=== PATIENT | female | born 1965 | race Caucasian/White ===

== ENCOUNTER 2020-09-17 10:13 | Outpatient (REF) | payer OTHER, SELFPAY ==
[2020-09-17 11:50] LABS: Hematocrit 36.1 % (37-47); Hemoglobin 11.5 g/dl (12.0-16.0); Mean Corpuscular HGB Conc 31.9 g/dl (31.0-35.0); Mean Corpuscular Hemoglobin 29.3 pg (27.0-33.0); Mean Corpuscular Volume 91.9 fL (80-98); Mean Platelet Volume 10.3 fL (9.4-12.3); Platelet Count 325 X10*3/uL (160-400); Red Blood Count 3.93 X10*6/uL (4.20-5.50); Red Cell Distribution Width 14.3 % (11.0-16.0)
[2020-09-17 12:22] LABS: Alanine Aminotransferase 16 U/L (0-31); Albumin Level 4.2 g/dL (3.5-5.0); Alkaline Phosphatase 52 U/L (39-117); Anion Gap 14 (12-20); Aspartate Amino Transferase 19 U/L (5-31); Bilirubin Total 0.6 mg/dL (0.0-1.0); Blood Urea Nitrogen 8 mg/dL (9-16); Calcium 8.4 mg/dL (8.4-10.2); Carbon Dioxide 24 mmol/L (22-29); Chloride 102 mmol/L (96-108); Cholesterol 166 mg/dL; Estimated Glomerular Filt Rate > 60; Glucose Fasting 93 mg/dL (60-99); HDL Cholesterol 74 mg/dL; Iron 86 mcg/dL (30-160); LDL Cholesterol Calculated 81 mg/dl; Percent Iron Saturation 19 % (15-50); Potassium 3.9 mmol/l (3.3-5.1); Sodium 136 mmol/L (135-145); Total Iron Binding Capacity 447 mcg/dL (228-428); Triglycerides 55 mg/dL; Unsaturated Iron Binding 361 ug/dL
[2020-09-17 12:27] LABS: Ferritin 7 ng/mL (10-250); Thyroid Stimulating Hormone 1.24 uIU/mL (0.32-4.0); Vitamin D 25-OH Total 27.4 ng/mL (>30)
[2020-09-17 14:07] LABS: Glucose Urine UA NEG (NEG); Leukocyte Esterase Urine NEG (NEG); Nitrite Urine NEG (NEG); Specific Gravity - Urine <= 1.005 (1.005-1.025); Urine Blood TRACE (NEG); Urine Ketones NEG (NEG); Urine Protein NEG (NEG-TRACE)
[2020-09-17 14:19] LABS: Appearance Urine CLEAR; Color Urine YELLOW
[2020-09-17 14:47] LABS: RBC Urine 0-2 /HPF (0); WBC Urine 0-2 /HPF (0-4)
[2020-09-17 14:48] LABS: Bacteria Urine TRACE /LPF; Squamous Epithelial Cell Urine 1+ /LPF
== END 2020-09-17 10:14 | disposition home or self-care (01) ==
LOC: HO.HMGCLDS 10:13
PROVIDERS: PCP Internal Medicine; Visit Provider Internal Medicine
DX: D64.9 Anemia, unspecified (principal); E55.9 Vitamin D deficiency, unspecified; E78.5 Hyperlipidemia, unspecified
CPT/HCPCS: 36415; 80053; 80061; 81001; 82306; 82728; 83540; 84443; 85027

== ENCOUNTER 2021-07-23 17:59 | Emergency (ER) | payer OTHER, SELFPAY ==
--- NOTE | ~2021-07-23 | XR_ITS ---
EXAMINATION: XR CHEST CLINICAL INFORMATION: This is a 56-year-old female with chest pain. COMPARISON: None TECHNIQUE: Frontal portable view of the chest was obtained. FINDINGS: The cardiac size within normal limits. The pulmonary vascularity appears within normal limits. There is mild prominence to the right paraspinal stripe. I am uncertain whether this represents the superior vena cava or if there is increased soft tissue density. An upright PA and lateral chest x-ray would be helpful for further evaluation. The aortopulmonary window appears within normal limits. There is no evidence of pulmonary consolidation. The bony structures appear within normal limits. XR/XR chest 1V IMPRESSION: 1. There is mild prominence to the right paraspinal stripe. This could be mild dilatation of the superior vena cava. However, soft tissue thickening cannot be completely excluded. This would be better evaluated with an upright PA and lateral chest x-ray.
--- NOTE | 2021-07-23 18:00 | ECG_ITS ---
Test Reason : EKG CHANGES Blood Pressure : / mmHG Vent. Rate : 094 BPM Atrial Rate : 094 BPM P-R Int : 132 ms QRS Dur : 098 ms QT Int : 366 ms P-R-T Axes : 066 -11 042 degrees QTc Int : 457 ms Normal sinus rhythm RSR' or QR pattern in V1 suggests right ventricular conduction delay Borderline ECG No previous ECGs available Referred By: Saran Lora Electronically Signed By:MAXIMO MANCUSO MD
[2021-07-23 18:02] VITALS: BP 200/110; PULSE 88; O2SAT 100
[2021-07-23 18:04] VITALS: BP 144/89; PULSE 100; RESP 19; TEMP 36.7; O2SAT 100; BMI 31.6
--- NOTE | 2021-07-23 18:10 | ED.CHESTPAIN ---
HPI - Chest Pain General Chief Complaint: Chest Pain <MATA Whitten - Last Filed: 07/23/21 21:36> Stated Complaint: CHEST TIGHTNESS,ABN [place]KG,H[place] [facility] [place]MATA [place] - Last Filed: 07/23/21 21:36> Time Seen by Provider: 07/23/21 18:00 <MATA Whitten - Last Filed: 07/23/21 21:36> Source: patient <MATA Whitten - Last Filed: 07/23/21 21:36> Mode of arrival: ambulatory <MATA Whitten - Last Filed: 07/23/21 21:36> Limitations: no limitations <MATA Whitten - Last Filed: 07/23/21 21:36> History of Present Illness HPI narrative: This is a 56-year-old female past medical history significant for anxiety, iron deficiency anemia presenting to the emergency department complaining of chest tightness, left arm tingling, sore throat, fever and anxiety since last night. Patient tells me that she went to Urgent Care, where they did a COVID test, EKG and told her that she had an abnormal EKG, they also told her that her blood pressure was elevated. Patient got nervous, and called the ambulance, she states that she began experiencing chest tightness, left arm tingling shortly after she left urgent care. She states that the chest discomfort is localized to the center of her chest, constant and does not radiate. She also tells me that her throat has been hurting since last night, she states it stings, and she feels as though she needs to clear her throat often. She states that last night she took her temperature at home was 100? F. She tells me that one of her coworkers is sick with an upper respiratory infection. She is not vaccinated against COVID-19. She is not on blood thinners. She denies nausea, vomiting, abdominal pain, weakness, chills. No previous cardiac history <MATA Whitten Last Filed: 07/23/21 21:36> MD complaint: chest discomfort ( tightness ) <MATA Whitten Last Filed: 07/23/21 21:36> Onset (ago): day(s) (2) <MATA Whitten - Last Filed: 07/23/21 21:36> Timing of current episode: constant <MATA Whitten - Last Filed: 07/23/21 21:36> Prior episodes: Yes <MATA Whitten - Last Filed: 07/23/21 21:36> Onset: during rest <MATA Whitten - Last Filed: 07/23/21 21:36> Pain location: substernal <MATA Whitten - Last Filed: 07/23/21 21:36> Pain radiation: left arm <MATA Whitten - Last Filed: 07/23/21 21:36> Severity: mild <MATA Whitten - Last Filed: 07/23/21 21:36> Quality: tightness <MATA Whitten - Last Filed: 07/23/21 21:36> Relieving factors: nothing <MATA Whitten - Last Filed: 07/23/21 21:36> Exacerbating factors: nothing <MATA Whitten - Last Filed: 07/23/21 21:36> Context: other (New herbal remedies.) <MATA Whitten - Last Filed: 07/23/21 21:36> Associated symptoms: fever and other (sore throat ) <MATA Whitten - Last Filed: 07/23/21 21:36> Treatment prior to arrival: none <MATA Whitten - Last Filed: 07/23/21 21:36> Related Data Allergies/Adverse Reactions: Allergies Allergy/AdvReac Type Severity Reaction Status Date / Time No Known Allergies Allergy Verified 09/24/20 09:03 <MATA Whitten - Last Filed: 07/23/21 21:36> Review of Systems Review of Systems: Constitutional : No Weight loss, + Fever, No Chills, No Fatigue, No Malaise ENT/Mouth : + sore throat, No Rhinorrhea Eyes: No Eye Pain, No Swelling, No Redness Cardiovascular : + Chest Pain, No SOB, No Dyspnea on Exertion, No Orthopnea, No Edema, No Palpitations Respiratory : No Cough, No Sputum, No Wheezing Gastrointestinal : No Nausea, No Vomiting, No Diarrhea, No Constipation, No abdominal Pain, No Hematochezia, No Melena Genitourinary : No Dysuria, No Urinary Frequency, No Hematuria, Musculoskeletal : No joint pain, No Myalgias, No Joint Swelling Skin : No Skin Lesions, No rash Neuro : No Weakness, No Numbness, No Dizziness, No Headache Psych : + Anxiety/Panic, No Depression All other systems reviewed and are negative <MATA Whitten - Last Filed: 07/23/21 21:36> [facility] Past Medical History Attestation statement: The following information was validated with the patient. <MATA Whitten - Last Filed: 07/23/21 21:36> Source: old records reviewed and nursing notes reviewed <MATA Whitten - Last Filed: 07/23/21 21:36> Medical History: Medical History Annual physical exam Iron deficiency anemia Overweight <MATA Whitten - Last Filed: 07/23/21 21:36> Surgical History: Surgical History H/O colonoscopy History of right knee surgery <MATA Whitten - Last Filed: 07/23/21 21:36> Social History Social History: Social History Alcohol intake: current Alcohol intake frequency: a few times a month Patient Tobacco Use Status: Never used Tobacco Use of substances other than those prescribed or required for medical reasons: No Advance Directives: No Advance Directives Information Provided: Yes Patient : No <MATA Whitten - Last Filed: 07/23/21 21:36> Physical Exam Vital Signs: Vital Signs: Last Vital Signs Temp 98.1 F 07/23/21 18:04 Pulse 97 07/23/21 20:13 Resp 14 07/23/21 20:13 BP 148/74 H 07/23/21 20:13 Pulse Ox 99 07/23/21 20:13 Body Mass Index 31.6 Patient is noted to be slightly hypertensive 144/89. <MATA Whitten - Last Filed: 07/23/21 21:36> Vital Signs: Last Vital Signs Temp 98.1 F 07/23/21 18:04 Pulse 97 07/23/21 20:13 Resp 14 07/23/21 20:13 BP 148/74 H 07/23/21 20:13 Pulse Ox 99 07/23/21 20:13 Body Mass Index 31.6 <Varghese Garza MD - Last Filed: 07/23/21 22:11> Vital Signs: Last Vital Signs Temp 98.1 F 07/23/21 18:04 Pulse 97 07/23/21 20:13 Resp 14 07/23/21 20:13 BP 148/74 H 07/23/21 20:13 Pulse Ox 99 07/23/21 20:13 Body Mass Index 31.6 <MATA Lake - Last Filed: 07/24/21 11:42> Appearance: Alert.? Oriented X3.? No acute distress.? Patient appears very anxious, speaking rapidly. Head: Normocephalic, atraumatic, no step-offs or deformities Eyes: Pupils equal, round and reactive to light.? ENT: Pharynx normal.? No erythema or tonsillar exudates. No lymphadenopathy. Neck: Normal inspection.? Neck supple.? CVS: Rapid rate, regular rhythm.? Pulses normal.??Mitral regurg Respiratory: No respiratory distress.? Breath sounds normal.? Abdomen: Soft and nontender.? Skin: Skin warm and dry.? Normal skin color.? Normal skin turgor.? Extremities: No lower extremity edema.? No calf ttp. Negative homans sign b/l. 5/5 strength to bilateral upper and lower extremities Back: No midline tenderness, no C-spine tenderness, full range of motion, no CVA tenderness bilaterally Neuro: Oriented X 3.? No motor deficit.? No sensory deficit. <MATA Whitten - Last Filed: 07/23/21 21:36> Course Course Course Narrative: agree with assessment and plan - patient very anxious, required reassurance of Dr. Garza of unremarkable w/u prior to d/c. <MATA Lake - Last Filed: 07/24/21 11:42> Reevaluation(s) Reevaluation #1: Leukopenia, baseline anemia noted. No acute electrolyte abnormalities. Patient is COVID positive. X-ray of chest shows prominence of the right paraspinal stripe. <MATA Whitten - Last Filed: 07/23/21 21:36> Time: 19:45 <MATA Whitten - Last Filed: 07/23/21 21:36> Reevaluation #2: Patient now reports SOB and she remains tachycardic. Ddimer will be ordered at this time to r/o PE <MATA Whitten - Last Filed: 07/23/21 21:36> Time: 19:46 <MATA Whitten - Last Filed: 07/23/21 21:36> Reevaluation #3: Ddimer is negative. At this time I feel as though patient's chest pain is likely secondary to anxiety. Each time I speak to patient about results she becomes very anxious, and tells me that she is starting to have the chest pain again or suddenly becomes short of breath. Her trop was negative, D-dimer was negative. Unlikely ACS. Or PE. Although patient is COVID positive, she is saturating 100% on room air, no labored breathing is noted. Patient now tells me that her shortness of breath has resolved. VSS. She has been advised to return to the emergency department with any new or worsening symptoms. She has also been advised to quarantine for 10-14 days and to wear a mask around other to diminish likleyhood of transmission. I have also given her strict return precautions such as to return to the emergency department if she begins to experience shortness of breath that is worsening, chest pain, fevers, chills, nausea, vomiting, headache, weakness. She has been advised to follow-up with her PCP and psychiatry. After I went to talk to the patient about discharge, she tells me she does not feel comfortable getting discharged home because she still feeling the chest pain. I told her that this is unlikely acute coronary syndrome, or a pulmonary embolism. I told her her troponin was negative, and her EKG looked okay. I offered patient a 2nd troponin, for peace of mind. She states she would like this. To note, patient was worried about her EKG. However, it was looked at by who agrees that there is no acute ischemia. <MATA Whitten - Last Filed: 07/23/21 21:36> Time: 20:41 <MATA Whitten - Last Filed: 07/23/21 21:36> Additional Reevaluation(s): 2125 Went to speak to the Patient with Dr. Garza. We answered all her questions and informed her that both her Trops are negative. And her D-dimer was negative. She is safe for DC home and i have given her cardiologys info for follow up. <MATA Whitten - Last Filed: 07/23/21 21:36> MDM - Chest Pain MDM Narrative Medical decision making narrative: 1800 56-year-old female past medical history significant for anxiety, and iron deficiency anemia presents to the emergency department with chest tightness that is substernal, nonradiating, constant, left arm tingling, sore throat, fevers X2 days. Patient was seen at urgent care today where they told her that she had an abnormal EKG. They did a COVID test that still pending at this time. Patient is not vaccinated against COVID-19. Upon physical examination patient appears anxious, she is speaking rapidly, she is in no acute distress. Lungs are clear to auscultation. A rapid regular rhythm is noted, likely sinus tachycardia secondary to anxiety. Abdomen is soft nontender nondistended. 5/5 strength upper and lower extremities. Pupils equal round and reactive to light bilaterally. Pharynx normal with moist mucous membranes, no tonsillar erythema, or tonsillar exudates noted. No focal neuro deficits. No lower extremity edema. Plan at this time is to obtain basic labs, troponin, strep, COVID, chest x-ray, EKG. Patient will be given 0.5 mg of p.o. Ativan, for anxiety. <MATA Whitten - Last Filed: 07/23/21 21:36> 1800 56-year-old female past medical history significant for anxiety, and iron deficiency anemia presents to the emergency department with chest tightness that is substernal, nonradiating, constant, left arm tingling, sore throat, fevers X2 days. Patient was seen at urgent care today where they told her that she had an abnormal EKG. They did a COVID test that still pending at this time. Patient is not vaccinated against COVID-19. Upon physical examination patient appears anxious, she is speaking rapidly, she is in no acute distress. Lungs are clear to auscultation. A rapid regular rhythm is noted, likely sinus tachycardia secondary to anxiety. Abdomen is soft nontender nondistended. 5/5 strength upper and lower extremities. Pupils equal round and reactive to light bilaterally. Pharynx normal with moist mucous membranes, no tonsillar erythema, or tonsillar exudates noted. No focal neuro deficits. No lower extremity edema. Plan at this time is to obtain basic labs, troponin, strep, COVID, chest x-ray, EKG. Patient will be given 0.5 mg of p.o. Ativan, for anxiety. Attending: Patient seen and evaluated [id number] by me. Patient's EKG is unremarkable, troponin x2 negative. Patient does have COVID, pulse oximetry normal, chest x-ray unremarkable <Varghese Garza MD - Last Filed: 07/23/21 22:11> Medical Records Data Attestation: I reviewed the patient's medical records. <MATA Whitten - Last Filed: 07/23/21 21:36> Lab Data Attestation: I reviewed the patient's lab results. <MATA Whitten - Last Filed: 07/23/21 21:36> Result diagrams: : 07/23/21 18:33 07/23/21 18:33 <MATA Whitten - Last Filed: 07/23/21 21:36> Labs: Lab Results 07/23/21 07/23/21 07/23/21 Range/Units 18:28 18:29 18:33 WBC 4.1 L (4.8-10.8) X10*3/uL RBC 3.97 L (4.20-5.50) X10*6/uL Hgb 11.5 L (12.0-16.0) g/dl Hct 35.6 L (37.0-47.0) % MCV 89.7 (80.0-98.0) fL MCH 29.0 (27.0-33.0) pg MCHC 32.3 (31.0-35.0) g/dl RDW 14.1 (11.0-16.0) % Plt Count 322 (160-400) X10*3/uL MPV 9.6 (9.4-12.3) fL Immature Gran % (Auto) 0.2 (0.0-0.4) % Neut % (Auto) 69.9 (45-73) % Lymph % (Auto) 12.5 L (20-40) % [place] % (Auto) 15.2 H (2-11) % Eos % (Auto) 1.2 (0-4) % Baso % (Auto) 1.0 (0-2) % Lymph # (Auto) 0.5 L (1.2-4.9) X10*3/uL [place] # (Auto) 0.6 (0.1-1.2) X10*3/uL Eos # (Auto) 0.1 (0.0-0.4) X10*3/uL Baso # (Auto) 0.0 (0.0-0.2) X10*3/uL Abs Immat Gran (auto) 0.01 (0.00-0.03) X10*3/uL Absolute Neuts (auto) 2.9 (2.0-8.3) x10*3/uL Absolute Nucleated RBC 0.000 (0.0-0.012) X10*3/uL Nucleated RBC % (auto) 0.0 (0.0-0.2) /100WBC D-Dimer High Sensitivty NG/ML Sodium (135-145) mmol/L Potassium (3.3-5.1) mmol/L Chloride (96-108) mmol/L Carbon Dioxide (22-29) mmol/L Anion Gap (12-20) BUN (9-16) mg/dL Creatinine (0.5-1.4) mg/dL Estim Creat Clear Calc Estimated GFR Random Glucose (60-115) mg/dL Calcium (8.4-10.2) mg/dL Magnesium (1.6-2.6) mg/dL Total Bilirubin (0.0-1.0) mg/dL AST (5-31) U/L ALT (0-31) U/L Alkaline Phosphatase (39-117) U/L Troponin I High Sens (<3.5-17.0) ng/L Total Protein (6.5-8.0) g/dL Albumin (3.5-5.0) g/dL COVID-19 (JOE) Positive A (Negative) COVID-19 Clin Com See Note S. pyogenes GrpA HELADIO Negative (Negative) 07/23/21 07/23/21 07/23/21 Range/Units 18:33 18:33 20:13 WBC (4.8-10.8) X10*3/uL RBC (4.20-5.50) X10*6/uL Hgb (12.0-16.0) g/dl Hct (37.0-47.0) % MCV (80.0-98.0) fL MCH (27.0-33.0) pg MCHC (31.0-35.0) g/dl RDW (11.0-16.0) % Plt Count (160-400) X10*3/uL MPV (9.4-12.3) fL Immature Gran % (Auto) (0.0-0.4) % Neut % (Auto) (45-73) % Lymph % (Auto) (20-40) % [place] % (Auto) (2-11) % Eos % (Auto) (0-4) % Baso % (Auto) (0-2) % Lymph # (Auto) (1.2-4.9) X10*3/uL [place] # (Auto) (0.1-1.2) X10*3/uL Eos # (Auto) (0.0-0.4) X10*3/uL Baso # (Auto) (0.0-0.2) X10*3/uL Abs Immat Gran (auto) (0.00-0.03) X10*3/uL Absolute Neuts (auto) (2.0-8.3) x10*3/uL Absolute Nucleated RBC (0.0-0.012) X10*3/uL Nucleated RBC % (auto) (0.0-0.2) /100WBC D-Dimer High Sensitivty 188 NG/ML Sodium 137 (135-145) mmol/L Potassium 3.8 (3.3-5.1) mmol/L Chloride 103 (96-108) mmol/L Carbon Dioxide 25 (22-29) mmol/L Anion Gap 13 (12-20) BUN 9 (9-16) mg/dL Creatinine 0.68 (0.5-1.4) mg/dL Estim Creat Clear Calc 105.0 Estimated GFR > 60 Random Glucose 101 (60-115) mg/dL Calcium 9.1 D (8.4-10.2) mg/dL Magnesium 2.1 (1.6-2.6) mg/dL Total Bilirubin 0.3 (0.0-1.0) mg/dL AST 21 (5-31) U/L ALT 19 (0-31) U/L Alkaline Phosphatase 57 (39-117) U/L Troponin I High Sens < 3.5 (<3.5-17.0) ng/L Total Protein 7.0 (6.5-8.0) g/dL Albumin 4.2 (3.5-5.0) g/dL COVID-19 (JOE) (Negative) COVID-19 Clin Com S. pyogenes GrpA HELADIO (Negative) 07/23/21 Range/Units 20:54 WBC (4.8-10.8) X10*3/uL RBC (4.20-5.50) X10*6/uL Hgb (12.0-16.0) g/dl Hct (37.0-47.0) % MCV (80.0-98.0) fL MCH (27.0-33.0) pg MCHC (31.0-35.0) g/dl RDW (11.0-16.0) % Plt Count (160-400) X10*3/uL MPV (9.4-12.3) fL Immature Gran % (Auto) (0.0-0.4) % Neut % (Auto) (45-73) % Lymph % (Auto) (20-40) % [place] % (Auto) (2-11) % Eos % (Auto) (0-4) % Baso % (Auto) (0-2) % Lymph # (Auto) (1.2-4.9) X10*3/uL [place] # (Auto) (0.1-1.2) X10*3/uL Eos # (Auto) (0.0-0.4) X10*3/uL Baso # (Auto) (0.0-0.2) X10*3/uL Abs Immat Gran (auto) (0.00-0.03) X10*3/uL Absolute Neuts (auto) (2.0-8.3) x10*3/uL Absolute Nucleated RBC (0.0-0.012) X10*3/uL Nucleated RBC % (auto) (0.0-0.2) /100WBC D-Dimer High Sensitivty NG/ML Sodium (135-145) mmol/L Potassium (3.3-5.1) mmol/L Chloride (96-108) mmol/L Carbon Dioxide (22-29) mmol/L Anion Gap (12-20) BUN (9-16) mg/dL Creatinine (0.5-1.4) mg/dL Estim Creat Clear Calc Estimated GFR Random Glucose (60-115) mg/dL Calcium (8.4-10.2) mg/dL Magnesium (1.6-2.6) mg/dL Total Bilirubin (0.0-1.0) mg/dL AST (5-31) U/L ALT (0-31) U/L Alkaline Phosphatase (39-117) U/L Troponin I High Sens < 3.5 (<3.5-17.0) ng/L Total Protein (6.5-8.0) g/dL Albumin (3.5-5.0) g/dL COVID-19 (JOE) (Negative) COVID-19 Clin Com S. pyogenes GrpA HELADIO (Negative) <MATA Whitten - Last Filed: 07/23/21 21:36> Lab Results 07/23/21 07/23/21 07/23/21 Range/Units 18:28 18:29 18:33 WBC 4.1 L (4.8-10.8) X10*3/uL RBC 3.97 L (4.20-5.50) X10*6/uL Hgb 11.5 L (12.0-16.0) g/dl Hct 35.6 L (37.0-47.0) % MCV 89.7 (80.0-98.0) fL MCH 29.0 (27.0-33.0) pg MCHC 32.3 (31.0-35.0) g/dl RDW 14.1 (11.0-16.0) % Plt Count 322 (160-400) X10*3/uL MPV 9.6 (9.4-12.3) fL Immature Gran % (Auto) 0.2 (0.0-0.4) % Neut % (Auto) 69.9 (45-73) % Lymph % (Auto) 12.5 L (20-40) % [place] % (Auto) 15.2 H (2-11) % Eos % (Auto) 1.2 (0-4) % Baso % (Auto) 1.0 (0-2) % Lymph # (Auto) 0.5 L (1.2-4.9) X10*3/uL [place] # (Auto) 0.6 (0.1-1.2) X10*3/uL Eos # (Auto) 0.1 (0.0-0.4) X10*3/uL Baso # (Auto) 0.0 (0.0-0.2) X10*3/uL Abs Immat Gran (auto) 0.01 (0.00-0.03) X10*3/uL Absolute Neuts (auto) 2.9 (2.0-8.3) x10*3/uL Absolute Nucleated RBC 0.000 (0.0-0.012) X10*3/uL Nucleated RBC % (auto) 0.0 (0.0-0.2) /100WBC D-Dimer High Sensitivty NG/ML Sodium (135-145) mmol/L Potassium (3.3-5.1) mmol/L Chloride (96-108) mmol/L Carbon Dioxide (22-29) mmol/L Anion Gap (12-20) BUN (9-16) mg/dL Creatinine (0.5-1.4) mg/dL Estim Creat Clear Calc Estimated GFR Random Glucose (60-115) mg/dL Calcium (8.4-10.2) mg/dL Magnesium (1.6-2.6) mg/dL Total Bilirubin (0.0-1.0) mg/dL AST (5-31) U/L ALT (0-31) U/L Alkaline Phosphatase (39-117) U/L Troponin I High Sens (<3.5-17.0) ng/L Total Protein (6.5-8.0) g/dL Albumin (3.5-5.0) g/dL COVID-19 (JOE) Positive A (Negative) COVID-19 Clin Com See Note S. pyogenes GrpA HELADIO Negative (Negative) 07/23/21 07/23/21 07/23/21 Range/Units 18:33 18:33 20:13 WBC (4.8-10.8) X10*3/uL RBC (4.20-5.50) X10*6/uL Hgb (12.0-16.0) g/dl Hct (37.0-47.0) % MCV (80.0-98.0) fL MCH (27.0-33.0) pg MCHC (31.0-35.0) g/dl RDW (11.0-16.0) % Plt Count (160-400) X10*3/uL MPV (9.4-12.3) fL Immature Gran % (Auto) (0.0-0.4) % Neut % (Auto) (45-73) % Lymph % (Auto) (20-40) % [place] % (Auto) (2-11) % Eos % (Auto) (0-4) % Baso % (Auto) (0-2) % Lymph # (Auto) (1.2-4.9) X10*3/uL [place] # (Auto) (0.1-1.2) X10*3/uL Eos # (Auto) (0.0-0.4) X10*3/uL Baso # (Auto) (0.0-0.2) X10*3/uL Abs Immat Gran (auto) (0.00-0.03) X10*3/uL Absolute Neuts (auto) (2.0-8.3) x10*3/uL Absolute Nucleated RBC (0.0-0.012) X10*3/uL Nucleated RBC % (auto) (0.0-0.2) /100WBC D-Dimer High Sensitivty 188 NG/ML Sodium 137 (135-145) mmol/L Potassium 3.8 (3.3-5.1) mmol/L Chloride 103 (96-108) mmol/L Carbon Dioxide 25 (22-29) mmol/L Anion Gap 13 (12-20) BUN 9 (9-16) mg/dL Creatinine 0.68 (0.5-1.4) mg/dL Estim Creat Clear Calc 105.0 Estimated GFR > 60 Random Glucose 101 (60-115) mg/dL Calcium 9.1 D (8.4-10.2) mg/dL Magnesium 2.1 (1.6-2.6) mg/dL Total Bilirubin 0.3 (0.0-1.0) mg/dL AST 21 (5-31) U/L ALT 19 (0-31) U/L Alkaline Phosphatase 57 (39-117) U/L Troponin I High Sens < 3.5 (<3.5-17.0) ng/L Total Protein 7.0 (6.5-8.0) g/dL Albumin 4.2 (3.5-5.0) g/dL COVID-19 (JOE) (Negative) COVID-19 Clin Com S. pyogenes GrpA HELADIO (Negative) 07/23/21 Range/Units 20:54 WBC (4.8-10.8) X10*3/uL RBC (4.20-5.50) X10*6/uL Hgb (12.0-16.0) g/dl Hct (37.0-47.0) % MCV (80.0-98.0) fL MCH (27.0-33.0) pg MCHC (31.0-35.0) g/dl RDW (11.0-16.0) % Plt Count (160-400) X10*3/uL MPV (9.4-12.3) fL Immature Gran % (Auto) (0.0-0.4) % Neut % (Auto) (45-73) % Lymph % (Auto) (20-40) % [place] % (Auto) (2-11) % Eos % (Auto) (0-4) % Baso % (Auto) (0-2) % Lymph # (Auto) (1.2-4.9) X10*3/uL [place] # (Auto) (0.1-1.2) X10*3/uL Eos # (Auto) (0.0-0.4) X10*3/uL Baso # (Auto) (0.0-0.2) X10*3/uL Abs Immat Gran (auto) (0.00-0.03) X10*3/uL Absolute Neuts (auto) (2.0-8.3) x10*3/uL Absolute Nucleated RBC (0.0-0.012) X10*3/uL Nucleated RBC % (auto) (0.0-0.2) /100WBC D-Dimer High Sensitivty NG/ML Sodium (135-145) mmol/L Potassium (3.3-5.1) mmol/L Chloride (96-108) mmol/L Carbon Dioxide (22-29) mmol/L Anion Gap (12-20) BUN (9-16) mg/dL Creatinine (0.5-1.4) mg/dL Estim Creat Clear Calc Estimated GFR Random Glucose (60-115) mg/dL Calcium (8.4-10.2) mg/dL Magnesium (1.6-2.6) mg/dL Total Bilirubin (0.0-1.0) mg/dL AST (5-31) U/L ALT (0-31) U/L Alkaline Phosphatase (39-117) U/L Troponin I High Sens < 3.5 (<3.5-17.0) ng/L Total Protein (6.5-8.0) g/dL Albumin (3.5-5.0) g/dL COVID-19 (JOE) (Negative) COVID-19 Clin Com S. pyogenes GrpA HELADIO (Negative) <Varghese Garza MD - Last Filed: 07/23/21 22:11> Lab Results 07/23/21 07/23/21 07/23/21 Range/Units 18:28 18:29 18:33 WBC 4.1 L (4.8-10.8) X10*3/uL RBC 3.97 L (4.20-5.50) X10*6/uL Hgb 11.5 L (12.0-16.0) g/dl Hct 35.6 L (37.0-47.0) % MCV 89.7 (80.0-98.0) fL MCH 29.0 (27.0-33.0) pg MCHC 32.3 (31.0-35.0) g/dl RDW 14.1 (11.0-16.0) % Plt Count 322 (160-400) X10*3/uL MPV 9.6 (9.4-12.3) fL Immature Gran % (Auto) 0.2 (0.0-0.4) % Neut % (Auto) 69.9 (45-73) % Lymph % (Auto) 12.5 L (20-40) % [place] % (Auto) 15.2 H (2-11) % Eos % (Auto) 1.2 (0-4) % Baso % (Auto) 1.0 (0-2) % Lymph # (Auto) 0.5 L (1.2-4.9) X10*3/uL [place] # (Auto) 0.6 (0.1-1.2) X10*3/uL Eos # (Auto) 0.1 (0.0-0.4) X10*3/uL Baso # (Auto) 0.0 (0.0-0.2) X10*3/uL Abs Immat Gran (auto) 0.01 (0.00-0.03) X10*3/uL Absolute Neuts (auto) 2.9 (2.0-8.3) x10*3/uL Absolute Nucleated RBC 0.000 (0.0-0.012) X10*3/uL Nucleated RBC % (auto) 0.0 (0.0-0.2) /100WBC D-Dimer High Sensitivty NG/ML Sodium (135-145) mmol/L Potassium (3.3-5.1) mmol/L Chloride (96-108) mmol/L Carbon Dioxide (22-29) mmol/L Anion Gap (12-20) BUN (9-16) mg/dL Creatinine (0.5-1.4) mg/dL Estim Creat Clear Calc Estimated GFR Random Glucose (60-115) mg/dL Calcium (8.4-10.2) mg/dL Magnesium (1.6-2.6) mg/dL Total Bilirubin (0.0-1.0) mg/dL AST (5-31) U/L ALT (0-31) U/L Alkaline Phosphatase (39-117) U/L Troponin I High Sens (<3.5-17.0) ng/L Total Protein (6.5-8.0) g/dL Albumin (3.5-5.0) g/dL COVID-19 (JOE) Positive A (Negative) COVID-19 Clin Com See Note S. pyogenes GrpA HELADIO Negative (Negative) 07/23/21 07/23/21 07/23/21 Range/Units 18:33 18:33 20:13 WBC (4.8-10.8) X10*3/uL RBC (4.20-5.50) X10*6/uL Hgb (12.0-16.0) g/dl Hct (37.0-47.0) % MCV (80.0-98.0) fL MCH (27.0-33.0) pg MCHC (31.0-35.0) g/dl RDW (11.0-16.0) % Plt Count (160-400) X10*3/uL MPV (9.4-12.3) fL Immature Gran % (Auto) (0.0-0.4) % Neut % (Auto) (45-73) % Lymph % (Auto) (20-40) % [place] % (Auto) (2-11) % Eos % (Auto) (0-4) % Baso % (Auto) (0-2) % Lymph # (Auto) (1.2-4.9) X10*3/uL [place] # (Auto) (0.1-1.2) X10*3/uL Eos # (Auto) (0.0-0.4) X10*3/uL Baso # (Auto) (0.0-0.2) X10*3/uL Abs Immat Gran (auto) (0.00-0.03) X10*3/uL Absolute Neuts (auto) (2.0-8.3) x10*3/uL Absolute Nucleated RBC (0.0-0.012) X10*3/uL Nucleated RBC % (auto) (0.0-0.2) /100WBC D-Dimer High Sensitivty 188 NG/ML Sodium 137 (135-145) mmol/L Potassium 3.8 (3.3-5.1) mmol/L Chloride 103 (96-108) mmol/L Carbon Dioxide 25 (22-29) mmol/L Anion Gap 13 (12-20) BUN 9 (9-16) mg/dL Creatinine 0.68 (0.5-1.4) mg/dL Estim Creat Clear Calc 105.0 Estimated GFR > 60 Random Glucose 101 (60-115) mg/dL Calcium 9.1 D (8.4-10.2) mg/dL Magnesium 2.1 (1.6-2.6) mg/dL Total Bilirubin 0.3 (0.0-1.0) mg/dL AST 21 (5-31) U/L ALT 19 (0-31) U/L Alkaline Phosphatase 57 (39-117) U/L Troponin I High Sens < 3.5 (<3.5-17.0) ng/L Total Protein 7.0 (6.5-8.0) g/dL Albumin 4.2 (3.5-5.0) g/dL COVID-19 (JOE) (Negative) COVID-19 Clin Com S. pyogenes GrpA HELADIO (Negative) 07/23/21 Range/Units 20:54 WBC (4.8-10.8) X10*3/uL RBC (4.20-5.50) X10*6/uL Hgb (12.0-16.0) g/dl Hct (37.0-47.0) % MCV (80.0-98.0) fL MCH (27.0-33.0) pg MCHC (31.0-35.0) g/dl RDW (11.0-16.0) % Plt Count (160-400) X10*3/uL MPV (9.4-12.3) fL Immature Gran % (Auto) (0.0-0.4) % Neut % (Auto) (45-73) % Lymph % (Auto) (20-40) % [place] % (Auto) (2-11) % Eos % (Auto) (0-4) % Baso % (Auto) (0-2) % Lymph # (Auto) (1.2-4.9) X10*3/uL [place] # (Auto) (0.1-1.2) X10*3/uL Eos # (Auto) (0.0-0.4) X10*3/uL Baso # (Auto) (0.0-0.2) X10*3/uL Abs Immat Gran (auto) (0.00-0.03) X10*3/uL Absolute Neuts (auto) (2.0-8.3) x10*3/uL Absolute Nucleated RBC (0.0-0.012) X10*3/uL Nucleated RBC % (auto) (0.0-0.2) /100WBC D-Dimer High Sensitivty NG/ML Sodium (135-145) mmol/L Potassium (3.3-5.1) mmol/L Chloride (96-108) mmol/L Carbon Dioxide (22-29) mmol/L Anion Gap (12-20) BUN (9-16) mg/dL Creatinine (0.5-1.4) mg/dL Estim Creat Clear Calc Estimated GFR Random Glucose (60-115) mg/dL Calcium (8.4-10.2) mg/dL Magnesium (1.6-2.6) mg/dL Total Bilirubin (0.0-1.0) mg/dL AST (5-31) U/L ALT (0-31) U/L Alkaline Phosphatase (39-117) U/L Troponin I High Sens < 3.5 (<3.5-17.0) ng/L Total Protein (6.5-8.0) g/dL Albumin (3.5-5.0) g/dL COVID-19 (JOE) (Negative) COVID-19 Clin Com S. pyogenes GrpA HELADIO (Negative) <MATA Lake - Last Filed: 07/24/21 11:42> ECG Data ECG #1: Attestation: I personally reviewed and interpreted this ECG as follows: <MATA Whitten - Last Filed: 07/23/21 21:36> ECG interpretation date: 07/23/21 <MATA Whitten - Last Filed: 07/23/21 21:36> ECG interpretation time: 18:27 <MATA Whitten Last Filed: 07/23/21 21:36> Prior ECG tracings: not available for review <MATA Whitten - Last Filed: 07/23/21 21:36> Interpretation: Ventricular rate of 94, LA normal, QRS normal, QT/QTC normal. EKG shows normal sinus rhythm with incomplete right bundle branch block. No ST elevations or inversions. No acute ischemia. No previous EKGs for comparison. <MATA Whitten Last Filed: 07/23/21 21:36> Discharge Plan Discharge Clinical Impression: Anxiety, Chest pain not due to acute coronary syndrome, COVID-19 <MATA Whitten Last Filed: 07/23/21 21:36> Patient Disposition: Home, Self-Care <MATA Whitten Last Filed: 07/23/21 21:36> Instructions: Anxiety (ED), Chest Wall Pain (ED), COVID-19 (Coronavirus Disease 2019) (ED) <MATA Whitten - Last Filed: 07/23/21 21:36> Additional Instructions: Take your medications as prescribed. If you were prescribed antibiotics today, it is important that you take your medication to their entirety, do not skip any doses, do not finish them early. Today you tested positive for COVID-19. Take Ibuprofen or Tylenol as needed for fevers or body aches. Quarantine for 14 days if you are not vaccinated or for 10 days if you are vaccinated. Drink plenty of fluids. Follow-up with your primary care provider this week. Follow up with Psychiatry to discuss your anxiety. I gave you a Cardiologists number that you can follow up with outpatient if you have further concerns. Return to the emergency department with new or worsening symptoms. In case of an emergency call 911 <MATA Whitten Last Filed: 07/23/21 21:36> Referrals: Alexi Bill MD [Physician] - 1 week Physician,Unknown J [Primary Care Provider] - 2 days <MATA Whitten Last Filed: 07/23/21 21:36> Stand Alone Forms: Work/School Release <MATA Whitten - Last Filed: 07/23/21 21:36> Interventions: ED Discharge Assessment Last Done: 07/23/21 22:16 <MATA Whitten - Last Filed: 07/23/21 21:36> Discharge Date/Time: 07/23/21 22:18 <MATA Whitten - Last Filed: 07/23/21 21:36>
[2021-07-23 18:16] VITALS: PULSE 94
[2021-07-23] MEDS: LORazepam 0.5 MG TABLET PO (18:20)
[2021-07-23 18:53] LABS: MANUAL DIFF FLAG NO
[2021-07-23 18:54] LABS: Eosinophils Absolute Auto 0.1 X10*3/uL (0.0-0.4); Eosinophils Percent Auto 1.2 % (0-4); Hematocrit 35.6 % (37.0-47.0); Hemoglobin 11.5 g/dl (12.0-16.0); Imm Gran Abs Auto 0.01 X10*3/uL (0.00-0.03); Imm Gran Pct Auto 0.2 % (0.0-0.4); Lymphocytes Absolute Auto 0.5 X10*3/uL (1.2-4.9); Lymphocytes Percent Auto 12.5 % (20-40); Mean Corpuscular HGB Conc 32.3 g/dl (31.0-35.0); Mean Corpuscular Volume 89.7 fL (80.0-98.0); Mean Platelet Volume 9.6 fL (9.4-12.3); Monocytes Absolute Auto 0.6 X10*3/uL (0.1-1.2); Monocytes Percent Auto 15.2 % (2-11); Neutrophils Absolute Auto 2.9 x10*3/uL (2.0-8.3); Neutrophils Percent Auto 69.9 % (45-73); Platelet Count 322 X10*3/uL (160-400); Red Blood Count 3.97 X10*6/uL (4.20-5.50); Red Cell Distribution Width 14.1 % (11.0-16.0); White Blood Count 4.1 X10*3/uL (4.8-10.8)
[2021-07-23 19:03] LABS: COVID-19 Test Positive (Negative); IDNOW Serial# 9DD0AD1C
[2021-07-23 19:03] LABS: Strep A Nucleic Acid Negative (Negative)
[2021-07-23 19:14] LABS: Alanine Aminotransferase 19 U/L (0-31); Albumin Level 4.2 g/dL (3.5-5.0); Alkaline Phosphatase 57 U/L (39-117); Anion Gap 13 (12-20); Aspartate Amino Transferase 21 U/L (5-31); Bilirubin Total 0.3 mg/dL (0.0-1.0); Blood Urea Nitrogen 9 mg/dL (9-16); Calcium 9.1 mg/dL (8.4-10.2); Carbon Dioxide 25 mmol/L (22-29); Chloride 103 mmol/L (96-108); Estimated Glomerular Filt Rate > 60; Glucose Random 101 mg/dL (60-115); Magnesium 2.1 mg/dL (1.6-2.6); Potassium 3.8 mmol/L (3.3-5.1); Sodium 137 mmol/L (135-145)
[2021-07-23 19:20] LABS: Troponin-I High Sensitivity < 3.5 ng/L (<3.5-17.0)
--- NOTE | 2021-07-23 20:10 | PC.NURSE ---
PT transferred to room 3 due to COVID precaituons. PT is comfortable in bed with no complaints at this time. VSS. D-dimer lab drawn. PT provided with bed side commode.
[2021-07-23 20:13] VITALS: BP 148/74; PULSE 97; RESP 14; O2SAT 99
[2021-07-23 20:28] LABS: D Dimer High Sensitivity 188 NG/ML
[2021-07-23 21:22] LABS: Troponin-I High Sensitivity < 3.5 ng/L (<3.5-17.0)
== END 2021-07-23 22:18 | disposition home or self-care (01) ==
PROVIDERS: Physician Assistant; Emergency Provider Emergency Medicine
DX: U07.1 COVID-19 (principal); R07.9 Chest pain, unspecified; F41.9 Anxiety disorder, unspecified; D50.9 Iron deficiency anemia, unspecified
CPT/HCPCS: 36415; 71045; 80053; 83735; 84484; 85025; 85379; 87635; 87651; 93005; 99284; 99285

== ENCOUNTER 2021-07-25 11:46 | Outpatient (REF) | payer OTHER, SELFPAY | END 2021-07-25 11:47 | disposition home or self-care (01) | LOC: HO.LNP 11:46 | PROVIDERS: Visit Provider Physician Assistant Medical | DX: Z20.822 Contact with and (suspected) exposure to COVID-19 (principal) | CPT/HCPCS: U0003; U0005 ==

== ENCOUNTER → 2021-08-31 13:40 | Outpatient (BNVA) | payer OTHER, SELFPAY | PROVIDERS: PCP Internal Medicine; Referring Provider Internal Medicine; Visit Provider Internal Medicine Cardiovascular Disease ==

== ENCOUNTER 2021-09-12 08:58 | Outpatient (REF) | payer OTHER, SELFPAY ==
[2021-09-12 12:06] LABS: Hematocrit 38.4 % (37.0-47.0); Hemoglobin 12.1 g/dl (12.0-16.0); Mean Corpuscular HGB Conc 31.5 g/dl (31.0-35.0); Mean Corpuscular Volume 88.9 fL (80.0-98.0); Mean Platelet Volume 10.8 fL (9.4-12.3); Platelet Count 371 X10*3/uL (160-400); Red Blood Count 4.32 X10*6/uL (4.20-5.50); Red Cell Distribution Width 16.2 % (11.0-16.0); White Blood Count 4.8 X10*3/uL (4.8-10.8)
[2021-09-12 12:33] LABS: Alanine Aminotransferase 17 U/L (0-31); Albumin Level 4.2 g/dL (3.5-5.0); Alkaline Phosphatase 58 U/L (39-117); Anion Gap 9 (12-20); Aspartate Amino Transferase 16 U/L (5-31); Bilirubin Total 0.4 mg/dL (0.0-1.0); Blood Urea Nitrogen 14 mg/dL (9-16); Calcium 9.5 mg/dL (8.4-10.2); Carbon Dioxide 29 mmol/L (22-29); Chloride 107 mmol/L (96-108); Cholesterol 191 mg/dL; Estimated Glomerular Filt Rate > 60; Glucose Fasting 92 mg/dL (60-99); HDL Cholesterol 70 mg/dL; LDL Cholesterol Calculated 112 mg/dl; Potassium 4.2 mmol/L (3.3-5.1); Sodium 141 mmol/L (135-145); Total Protein 7.3 g/dL (6.5-8.0); Triglycerides 47 mg/dL
[2021-09-12 12:52] LABS: TSH reflex Free T4 1.72 uIU/mL (0.32-4.0); Vitamin D 25-OH Total 42.5 ng/mL (>30)
== END 2021-09-12 08:59 | disposition home or self-care (01) ==
LOC: HO.HMGCLDS 08:58
PROVIDERS: PCP Internal Medicine; Visit Provider Internal Medicine
DX: Z00.00 Encounter for general adult medical examination without abnormal findings (principal); E04.9 Nontoxic goiter, unspecified
CPT/HCPCS: 36415; 80053; 80061; 82306; 84443; 85027

== ENCOUNTER 2021-09-15 11:46 | Outpatient (REF) | payer OTHER, SELFPAY ==
[2021-09-15 14:22] LABS: Appearance Urine CLEAR; Color Urine YELLOW; Glucose Urine UA NEG (NEG); Leukocyte Esterase Urine NEG (NEG); Nitrite Urine NEG (NEG); Urine Blood NEG (NEG); Urine Ketones NEG (NEG); Urine Protein NEG (NEG-TRACE)
[2021-09-15 14:30] LABS: Bacteria Urine 1+ /LPF; RBC Urine 0-2 /HPF (0); Squamous Epithelial Cell Urine 2+ /LPF; WBC Urine 0-2 /HPF (0-4)
== END 2021-09-15 11:47 | disposition home or self-care (01) ==
LOC: HO.HMGCLDS 11:46
PROVIDERS: PCP Internal Medicine; Visit Provider Internal Medicine
DX: Z00.00 Encounter for general adult medical examination without abnormal findings (principal)
CPT/HCPCS: 81001

== ENCOUNTER 2021-09-22 13:58 | Outpatient (REF) | payer OTHER, SELFPAY ==
--- NOTE | ~2021-09-22 | US_ITS ---
EXAMINATION: US THYROID CLINICAL INFORMATION: Nontoxic goiter, unspecified. COMPARISON: None TECHNIQUE: Linear transducer grayscale and color Doppler examination with attention to the region of the thyroid. FINDINGS: SIZE: Measurements of the thyroid lobes and nodules are given in sagittal, anteroposterior and transverse dimensions respectively. Right Thyroid Lobe: 5.4 x 1.5 x 1.1 cm, volume 4.7 mL. Parenchyma: The gland echotexture is homogeneous. Thyroid vascularity is increased. Left Thyroid Lobe: 4.9 x 0.9 x 1.4 cm, volume 3.1 mL. Parenchyma: The gland echotexture is homogeneous. Thyroid vascularity is increased. Isthmus: 0.2 cm in maximum AP dimension. Estimated total number of nodules greater than or equal to 1 cm: 2 [employer] nodules are described as follows: 1. Location: Right lower pole. Size: 1.1 x 0.9 x 0.7 cm, volume 0.38 mL. Nodule characteristics: Composition: Solid/almost completely solid (2). Echogenicity: Very hypoechoic (3). Shape: Not taller than wide (0). Margins: Smooth (0). Echogenic Foci: None (0). ACR TI-RADS total points: 5 ACR TI-RADS category: 4 2. Location: Right mid pole. Size: 0.4 x 0.3 x 0.4 cm, volume 0.02 mL. Nodule characteristics: Composition: Spongiform (0). Echogenicity: None Shape: Not taller than wide Margins: Smooth (0). Echogenic Foci: None (0). ACR TI-RADS total points: 0 ACR TI-RADS category: 1 3. Location: Right upper pole. Size: 1.1 x 0.7 x 0.8 cm, volume 0.33 mL. Nodule characteristics: Composition: Solid (2). Echogenicity: Hypoechoic (2). Shape: Not taller than wide (0). Margins: Smooth (0). Echogenic Foci: Punctate echogenic foci (3). ACR TI-RADS total points: 7 ACR TI-RADS category: 5 4. Location: Left lower pole. Size: 0.3 x 0.5 x 0.8 cm, volume 0.16 mL. Nodule characteristics: Composition: Spongiform (0). Echogenicity: None Shape: Not taller than wide Margins: Smooth (0). Echogenic Foci: None ACR TI-RADS total points: 0 ACR TI-RADS category: 1 5. Location: Left mid pole. Size: 0.5 x 0.3 x 0.4 cm, volume 0.04 mL. Nodule characteristics: Composition: Spongiform (0). Echogenicity: None Shape: Not taller than wide Margins: Smooth (0). Echogenic Foci: None ACR TI-RADS total points: 0 ACR TI-RADS category: 1 NODES: No lymphadenopathy is seen in the tissue surrounding the thyroid gland. US/US thyroid IMPRESSION: 1. Slightly hypervascular normal-sized thyroid gland with bilateral thyroid nodules. 2. The right upper pole thyroid nodule has total points of 7 and is suspicious. A short-term 3-6 months follow-up automated biopsy now can be performed. ACR TI-RADS RECOMMENDATION REFERENCE: Ultrasound-guided fine-needle aspiration, followup ultrasound, no further follow up. * TR1 (0 point) and TR 2 (2 points): No FNA or follow up * TR3 (3 points): FNA if more than or equal to 2.5 cm in maximum dimension, followup ultrasound in 1, 3 and 5 years if 1.5 to 2.4 cm in maximum dimension. * TR4 (4-6 points): FNA if more than or equal to 1.5 cm in maximum dimension, followup ultrasound in 1, 2, 3 and 5 years if 1 to 1.4 cm in maximum dimension. * TR5 (more than or equal to 7 points): FNA if more than or equal to 1 cm in maximum dimension, followup ultrasound every year for 5 years if 0.5 to 0.9 cm in maximum dimension. * TR3, TR4 or TR5 nodules that are below the size threshold for follow up receive no follow up.
== END 2021-09-22 13:59 | disposition home or self-care (01) ==
LOC: HO.HMGCX 13:58
PROVIDERS: PCP Internal Medicine; Visit Provider Internal Medicine
DX: Z00.00 Encounter for general adult medical examination without abnormal findings (principal); E04.9 Nontoxic goiter, unspecified
CPT/HCPCS: 76536

== ENCOUNTER 2021-09-28 10:55 | Outpatient (REF) | payer OTHER, SELFPAY ==
--- NOTE | ~2021-09-28 | XR_ITS ---
EXAMINATION: XR CHEST CLINICAL INFORMATION: Prominent right Spinal stripe on previous chest x-ray 07/23/2021 COMPARISON: Chest x-ray 07/23/2021 TECHNIQUE: 2 views of the chest were obtained. FINDINGS: Lungs are well-expanded and clear. The heart size and pulmonary vascularity is normal. No paraspinal stripe seen. No gross bony abnormality. XR/XR chest 2V IMPRESSION: Unremarkable chest examination.
== END 2021-09-28 10:56 | disposition home or self-care (01) ==
LOC: HO.HMGCX 10:55
PROVIDERS: PCP Internal Medicine; Visit Provider Internal Medicine
DX: R93.89 Abnormal findings on diagnostic imaging of other specified body structures (principal)
CPT/HCPCS: 71046

== ENCOUNTER 2022-12-13 10:41 | Outpatient (REF) | payer OTHER, SELFPAY ==
[2022-12-13 11:27] LABS: MANUAL DIFF FLAG NO
[2022-12-13 11:41] LABS: Basophils Absolute Auto 0.1 X10*3/uL (0.0-0.2); Basophils Percent Auto 1.1 % (0-2); Eosinophils Absolute Auto 0.1 X10*3/uL (0.0-0.4); Eosinophils Percent Auto 1.1 % (0-4); Hematocrit 39.6 % (37.0-47.0); Hemoglobin 13.1 g/dl (12.0-16.0); Imm Gran Abs Auto 0.01 X10*3/uL (0.00-0.03); Imm Gran Pct Auto 0.2 % (0.0-0.4); Lymphocytes Absolute Auto 1.7 X10*3/uL (1.2-4.9); Lymphocytes Percent Auto 39.1 % (20-40); Mean Corpuscular HGB Conc 33.1 g/dl (31.0-35.0); Mean Corpuscular Hemoglobin 30.5 pg (27.0-33.0); Mean Corpuscular Volume 92.3 fL (80.0-98.0); Monocytes Absolute Auto 0.4 X10*3/uL (0.1-1.2); Monocytes Percent Auto 9.3 % (2-11); Neutrophils Absolute Auto 2.2 x10*3/uL (2.0-8.3); Neutrophils Percent Auto 49.2 % (45-73); Platelet Count 277 X10*3/uL (160-400); Red Blood Count 4.29 X10*6/uL (4.20-5.50); Red Cell Distribution Width 13.1 % (11.0-16.0); White Blood Count 4.4 X10*3/uL (4.8-10.8)
[2022-12-13 12:46] LABS: Alanine Aminotransferase 18 U/L (0-31); Albumin Level 4.2 g/dL (3.5-5.0); Alkaline Phosphatase 52 U/L (39-117); Anion Gap 13 (12-20); Aspartate Amino Transferase 20 U/L (5-31); Bilirubin Total 0.7 mg/dL (0.0-1.0); Blood Urea Nitrogen 11 mg/dL (9-16); Calcium 9.3 mg/dL (8.4-10.2); Carbon Dioxide 27 mmol/L (22-29); Chloride 103 mmol/L (96-108); Cholesterol 206 mg/dL; Estimated Glomerular Filt Rate > 60; Glucose Fasting 87 mg/dL (60-99); HDL Cholesterol 70 mg/dL; LDL Cholesterol Calculated 127 mg/dl; Potassium 4.1 mmol/L (3.3-5.1); Sodium 139 mmol/L (135-145); Total Protein 6.7 g/dL (6.5-8.0); Triglycerides 47 mg/dL
[2022-12-13 12:49] LABS: TSH reflex Free T4 1.27 uIU/mL (0.32-4.0); Vitamin D 25-OH Total 60.7 ng/mL (>30)
[2022-12-13 14:00] LABS: Appearance Urine Clear; Color Urine Yellow; Glucose Urine UA Negative (Negative); Leukocyte Esterase Urine Trace (Negative); Nitrite Urine Negative (Negative); Specific Gravity - Urine 1.015 (1.005-1.025); UMIC TRIGGER UACC YES; Urine Blood Trace (Negative); Urine Ketones Negative (Negative); Urine Protein Negative (Neg-Trace)
[2022-12-13 14:03] LABS: Bacteria Urine None Seen (None Seen); Hyaline Casts Urine 0-2 /LPF (0-2); RBC Urine 0-2 /HPF (0-2); WBC Urine 0-5 /HPF (0-5)
== END 2022-12-13 10:42 | disposition home or self-care (01) ==
LOC: HO.HMGCLDS 10:41
PROVIDERS: PCP Internal Medicine; Visit Provider Internal Medicine
DX: Z00.00 Encounter for general adult medical examination without abnormal findings (principal); E04.2 Nontoxic multinodular goiter
CPT/HCPCS: 36415; 80053; 80061; 81001; 81003; 82306; 84443; 85025

== ENCOUNTER 2022-12-20 10:10 | Outpatient (REF) | payer OTHER, SELFPAY ==
[2022-12-20 11:31] LABS: Appearance Urine Clear; Color Urine Yellow; Glucose Urine UA Negative (Negative); Leukocyte Esterase Urine Trace (Negative); Nitrite Urine Negative (Negative); Specific Gravity - Urine <= 1.005 (1.005-1.025); UMIC TRIGGER UA YES; UMIC TRIGGER UACC YES; Urine Blood Negative (Negative); Urine Ketones Negative (Negative); Urine Protein Negative (Neg-Trace)
[2022-12-20 11:40] LABS: Bacteria Urine None Seen (None Seen); Hyaline Casts Urine 0-2 /LPF (0-2); RBC Urine 0-2 /HPF (0-2); WBC Urine 0-5 /HPF (0-5)
== END 2022-12-20 10:11 | disposition home or self-care (01) ==
LOC: HO.HMGCLDS 10:10
PROVIDERS: PCP Internal Medicine; Visit Provider Internal Medicine
DX: Z00.00 Encounter for general adult medical examination without abnormal findings (principal); E04.2 Nontoxic multinodular goiter; R82.90 Unspecified abnormal findings in urine
CPT/HCPCS: 81001; 87086

== ENCOUNTER 2023-02-06 07:21 | Outpatient (REF) | payer OTHER, SELFPAY ==
[2023-02-06 11:22] LABS: Appearance Urine Clear; Color Urine Yellow; Glucose Urine UA Negative (Negative); Leukocyte Esterase Urine Negative (Negative); Nitrite Urine Negative (Negative); UMIC TRIGGER UACC YES; Urine Blood Trace (Negative); Urine Ketones Negative (Negative); Urine Protein Negative (Neg-Trace)
[2023-02-06 11:25] LABS: Bacteria Urine None Seen (None Seen); Hyaline Casts Urine 0-2 /LPF (0-2); RBC Urine 0-2 /HPF (0-2); Squamous Epithelial Cell Urine 0-2 /HPF (0-2); WBC Urine 0-5 /HPF (0-5)
== END 2023-02-06 07:22 | disposition home or self-care (01) ==
LOC: HO.HMGCLDS 07:21
PROVIDERS: PCP Internal Medicine; Visit Provider Internal Medicine
DX: R82.90 Unspecified abnormal findings in urine (principal)
CPT/HCPCS: 81001

== ENCOUNTER 2023-02-07 16:55 | Outpatient (REF) | payer OTHER, SELFPAY ==
[2023-02-07 18:15] LABS: Appearance Urine Clear; Color Urine Yellow; Glucose Urine UA Negative (Negative); Leukocyte Esterase Urine Negative (Negative); Nitrite Urine Negative (Negative); Specific Gravity - Urine <= 1.005 (1.005-1.025); Urine Blood Negative (Negative); Urine Ketones Negative (Negative); Urine Protein Negative (Neg-Trace)
== END 2023-02-07 16:56 | disposition home or self-care (01) ==
LOC: HO.LNP 16:55
PROVIDERS: Visit Provider Internal Medicine
DX: Z00.00 Encounter for general adult medical examination without abnormal findings (principal); E04.2 Nontoxic multinodular goiter
CPT/HCPCS: 81003

== ENCOUNTER 2023-03-08 09:26 | Outpatient (REF) | payer OTHER, SELFPAY ==
--- NOTE | ~2023-03-08 | XR_ITS ---
EXAMINATION: CERVICAL SPINE 3 VIEWS CLINICAL INFORMATION: Other symptoms and signs involving the musculoskeletal system. COMPARISON: None. TECHNIQUE: Frontal, lateral and odontoid views are obtained. FINDINGS: Vertebral body heights and alignment are normal. At C6-C7, there is moderately severe disc space narrowing. The remaining disc spaces are relatively well-maintained. No acute fracture or spondylolisthesis is seen. There is moderate anterior spondylosis at C5-C6 and C6-C7. The posterior elements are intact. There is no prevertebral soft tissue swelling. The dens and C7-T1 interface are normal. XR/XR lumbar spine 2-3V IMPRESSION: 1. There is moderate degenerative disc disease at C6-C7. 2. Moderate anterior spondylosis is seen at C5-C6 and C6-C7. EXAMINATION: XR LUMBOSACRAL SPINE CLINICAL INFORMATION: Other symptoms and signs involving the musculoskeletal system. COMPARISON: None TECHNIQUE: AP and lateral views of the lumbar spine and lateral view of the lumbosacral junction. FINDINGS: There is bony demineralization. There is a slight lumbar levoscoliosis. The lumbar disc spaces are well-maintained. No acute fracture or spondylolisthesis is seen. There is multi-level mild lumbar spondylosis. The posterior elements are intact. The paravertebral soft tissues are unremarkable. There are pelvic phleboliths. IMPRESSION: 1. The lumbar disc spaces are well-maintained. 2. There is multi-level mild lumbar spondylosis. 3. There is a slight lumbar levoscoliosis.
--- NOTE | ~2023-03-08 | XR_ITS ---
EXAMINATION: CERVICAL SPINE 3 VIEWS CLINICAL INFORMATION: Other symptoms and signs involving the musculoskeletal system. COMPARISON: None. TECHNIQUE: Frontal, lateral and odontoid views are obtained. FINDINGS: Vertebral body heights and alignment are normal. At C6-C7, there is moderately severe disc space narrowing. The remaining disc spaces are relatively well-maintained. No acute fracture or spondylolisthesis is seen. There is moderate anterior spondylosis at C5-C6 and C6-C7. The posterior elements are intact. There is no prevertebral soft tissue swelling. The dens and C7-T1 interface are normal. XR/XR cervical spine 2V IMPRESSION: 1. There is moderate degenerative disc disease at C6-C7. 2. Moderate anterior spondylosis is seen at C5-C6 and C6-C7. EXAMINATION: XR LUMBOSACRAL SPINE CLINICAL INFORMATION: Other symptoms and signs involving the musculoskeletal system. COMPARISON: None TECHNIQUE: AP and lateral views of the lumbar spine and lateral view of the lumbosacral junction. FINDINGS: There is bony demineralization. There is a slight lumbar levoscoliosis. The lumbar disc spaces are well-maintained. No acute fracture or spondylolisthesis is seen. There is multi-level mild lumbar spondylosis. The posterior elements are intact. The paravertebral soft tissues are unremarkable. There are pelvic phleboliths. IMPRESSION: 1. The lumbar disc spaces are well-maintained. 2. There is multi-level mild lumbar spondylosis. 3. There is a slight lumbar levoscoliosis.
[2023-03-12 21:03] LABS: Antibody to SS-A Antigen <1.0 NEG AI (<1.0 NEG); Antibody to SS-B Antigen <1.0 NEG AI (<1.0 NEG)
[2023-03-16 13:23] LABS: Anti Nuclear Antibody Screen NEGATIVE (NEGATIVE)
== END 2023-03-08 09:27 | disposition home or self-care (01) ==
LOC: HO.HMGCX 09:26
PROVIDERS: PCP Internal Medicine; Visit Provider Internal Medicine
DX: R68.2 Dry mouth, unspecified (principal); R29.898 Other symptoms and signs involving the musculoskeletal system; M50.323 Other cervical disc degeneration at C6-C7 level; M47.816 Spondylosis without myelopathy or radiculopathy, lumbar region
CPT/HCPCS: 36415; 72040; 72100; 86038; 86235

== ENCOUNTER 2023-03-16 10:51 | Outpatient (AMB) | payer OTHER, SELFPAY ==
[2023-03-16 11:08] VITALS: BP 108/66; PULSE 78; O2SAT 99; BMI 32.0
--- NOTE | 2023-03-16 11:08 | A.OFFPC_ITS ---
Vital Signs 03/16/23 11:08 Height 5 ft 6 in Weight 198 lb BMI 32.0 BP 108/66 Blood Pressure Location Rt brachial Position Sitting Pulse 78 Pulse Source Pulse Oximeter Pulse Oximetry (%) 99 Oxygen Delivery Method Room Air Intake Visit Reasons: ER follow up Intake Note: Pt is here today for ER follow up visit. Pt states that she has some questions she would like to discuss today. Allergies No Known Allergies Allergy (Verified 03/16/23 11:12) Medication List - Last Reconciled 03/16/23 by Kayla Rosario MD cholecalciferol (vitamin D3) 50 mcg PO DAILY [id number] serr PO omeprazole 20 mg PO DAILY Tobacco use date assessed: 03/16/23 Dental Screening Dental Screen Date: 03/16/23 Did you have a dental visit in the last 12 months?: Yes Did you have a dental problem in the last 6 months where you did not have access to dental care?: No Was dental information given to patient?: Patient has dentist HPI ER follow up HPI Details Pt presents for f/u of ER visit. Pt developed dyspnea on exertion with lower chest discomfort lasting a few minutes at a time 3 days ago. Evaluation ER including chest x-ray EKG basic labs were normal. Patient denies palpitations radiation of the discomfort but reports having episodes of heartburn on and off occasionally after laying down but also with regular activities. She denies nausea vomiting fever chills cough or wheezing. Patient complains of chronic postnasal drip and pressure in the left nostril on and off for few months. She denies allergy symptoms but reports intermittent sinus congestion. Patient is concerned about sleep apnea having episodes of difficulty breathing when trying to fall asleep laying on her back. She would like to see a sleep medicine specialis.t [facility] Medical History Annual physical exam Dupuytren's contracture of right hand Hx of screening mammography Iron deficiency anemia Multinodular goiter Neck pain Overweight RBBB Thyroid nodule Surgical History H/O colonoscopy History of right knee surgery Family History Father No problems noted. Mother A-fib Other Mental health disorder Substance use disorder Social History Housing: Apartment Alcohol intake: current Alcohol intake frequency: a few times a month Patient Tobacco Use Status: Never used Tobacco e-Cigarette/Vaping Use: Never Used Current occupational status: employed Cognitive needs: No Hearing needs: No Vision needs: Yes Questionnaire Thrive Questionnaire Date Thrive assessed: 12/18/22 ISABEL-7 AMB Questionnaire ISABEL-7 Date ISABEL - 7 assessed: 12/18/22 Source: Developed by Drs. Patricio Penaloza, Zulma Moya, Harris Cody and colleagues, with an educational mychal from [employer]. Review of Systems Const All systems reviewed & are unremarkable except as noted in HPI and below Reports no additional complaints Eyes Reports no additional complaints ENT Reports no additional complaints Card Reports no additional complaints Resp Reports no additional complaints GI Reports no additional complaints Reports no additional complaints Physical exam (Primary Care) Vital Signs: Last Vital Signs Pulse 78 03/16/23 11:08 BP 108/66 03/16/23 11:08 Pulse Ox 99 03/16/23 11:08 Oxygen Delivery Method Room Air 03/16/23 11:08 BMI result Body Mass Index 32.0 Tobacco/Smoking Status: Tobacco use Status Tobacco use date assessed 03/16/23 03/16/23 11:10 Patient Tobacco Use Status Never used Tobacco 03/16/23 11:10 e-Cigarette/Vaping Use Never Used 03/16/23 11:10 Thrive Assessment: Date of Thrive Assessment Date Thrive assessed 12/18/22 03/16/23 11:10 Const General: no acute distress HENMT Head: Yes normal to inspection General nose exam: Normal external nose present, Abnormal mucous membranes and turbinates present erythematous and Nasal discharge present Face and sinus: Yes normal facial exam and No sinus tenderness Throat: Yes postnasal drainage Eyes General: appearance normal, both eyes and all related structures Neck Neck: Yes supple Resp Effort & Inspection: normal respiratory effort Auscultation: clear to auscultation bilaterally Cardio Rhythm: regular rhythm Heart sounds: S1 normal heart sound present and S2 normal heart sound present GI Inspection: Yes normal to inspection Palpation (GI): Soft to palpation Percussion: Yes normal to percussion Auscultation: normal bowel sounds Assessment and Plan Assessment & Plan (1) Sleep apnea: Code(s): G47.30 - Sleep apnea, unspecified Plan: Referred to sleep medicine (2) Heartburn: Code(s): R12 - Heartburn Plan: anti GERD diet and lifestyle modification discussed with the patient. She will try omeprazole for 1 month if symptoms persist refer to GI (3) Dyspnea on exertion: Code(s): R06.09 - Other forms of dyspnea Plan: schedule stress test (4) Postnasal drip: Code(s): R09.82 - Postnasal drip Plan: try anitihistamine and Flonase for 1 month, refer to ENT Orders: Orders CA stress test Today I20.8 - Other forms of angina pectoris, R06.09 - Other forms of dyspnea, R12 - Heartburn NM cardiolite stress test Today I20.8 - Other forms of angina pectoris, R06.09 - Other forms of dyspnea Referrals Sleep Medicine Referral G47.30 - Sleep apnea, unspecified Ear/Nose/Throat Referral R09.81 - Nasal congestion, R09.82 - Postnasal drip Medications: New omeprazole 20 mg PO DAILY 30 caps 0RF Coding Level of Care Code Est Pt Level 4 (82255) Diagnoses Sleep apnea G47.30 Heartburn R12 Dyspnea on exertion R06.09 Postnasal drip R09.82
== END 2023-03-16 12:18 | disposition home or self-care (01) ==
PROVIDERS: PCP Internal Medicine; Visit Provider Internal Medicine
DX: G47.30 Sleep apnea, unspecified (principal); R12 Heartburn; R06.09 Other forms of dyspnea; R09.82 Postnasal drip
CPT/HCPCS: 99214

== ENCOUNTER → 2023-04-03 08:04 | Outpatient (REF) | payer OTHER, SELFPAY ==
--- NOTE | ~2023-04-03 | NM_ITS ---
Exercise Myocardial perfusion study Indication: Angina pectoris to evaluate for myocardial ischemia Technique: The patient was brought in for an exercise perfusion study on 04/03/2023. Patient performed exercise as per Ian protocol and was injected 30 mCi of sestamibi was given intravenously one target HR was achieved. Images were obtained using the SPECT gamma camera interlaced with the gating device. Images were obtained in supine position. Resting perfusion study was performed on 04/04/2023. Patient was administered 30 mCi of sestamibi intravenously at rest. Images were then obtained in supine position. Images obtained with and without CT attenuation. Total DLP 136 mGy-cm. Images were processed with the software and compared side to side in short axis, horizontal long axis and vertical long axis views. Findings: The stress perfusion study showed non attenuated images show minimal thinning of the apex of the LV myocardium. Remainder of the LV myocardium is normally perfused. Attenuation corrected images show mildly reduced uptake in the apex as well as the distal anterior and distal septum of the LV myocardium.. The gated study shows normal LV systolic function with calculated LVEF of 66%. LV cavity is normal in size. The gated study shows normal systolic wall thickening and contraction of all segments. There is no transient ischemic dilation. Resting study shows no change in perfusion pattern compared to stress perfusion study. Gating at rest reveals normal systolic wall motion with ejection fraction at 65%. The findings are consistent with no clear reversible defect suggestive of ischemia. Normal myocardial perfusion. NM/NM cardiolite stress test Impression: 1. Normal myocardial perfusion 2. Gated LVEF is 66% 3. Transient ischemic dilatation not present Stress EKG is negative for ischemia
--- NOTE | 2023-04-03 08:07 | CA_ITS ---
Acquisition Time: 2023-04-03 08:26:16 Total Exercise Time: 00:05:15 Test Indications: chest pressure, shortness of pre Medications: Protocol: LISA Max HR: 153 BPM 93% of Pred: 163 BPM Max BP: 138/078 mmHG Max Work Load: 7.0 METS Exercise stress test exercise 5 min 15 sec of Lisa protocol achieving 93% MPHR, with mild SOB, 3/10 chest tightness. with isolated PVC, with normotensive response to exercise, without EKG changes. Chest tightness and SOB resolved in recovery. Nuclear images pending. Test reviewed with Dr. Mccurdy. Referred By: Kayla Rosario Overread By: JUAN FRANCISCO MCCURDY
== END ==
LOC: HO.CARD 08:04
PROVIDERS: PCP Internal Medicine; Visit Provider Internal Medicine
DX: I20.8 Other forms of angina pectoris (principal); R06.09 Other forms of dyspnea; R12 Heartburn
CPT/HCPCS: 78452; 93017; A9500

== ENCOUNTER → 2023-04-03 08:21 | Outpatient (BNV) | payer OTHER, SELFPAY | PROVIDERS: PCP Internal Medicine; Visit Provider Internal Medicine Cardiovascular Disease | DX: R07.9 Chest pain, unspecified (principal); R06.02 Shortness of breath | CPT/HCPCS: 78452; 93016; 93018 ==

== ENCOUNTER 2023-04-09 14:33 | Outpatient (AMB) | payer OTHER, SELFPAY ==
--- NOTE | 2023-04-09 15:37 | MHC.OFFWIV ---
Intake Vital Signs 04/09/23 15:39 Height 5 ft 6 in BP 102/62 Blood Pressure Location Rt brachial Position Sitting Pulse 87 Pulse Source Pulse Oximeter Temp 97.3 F Temp Source Temporal Artery Scan Pulse Oximetry (%) 98 Oxygen Delivery Method Room Air Intake Visit Reasons: EP rash on left leg (lobby) Intake Note: Pt is here c/o rash on her left leg that started this morning. Patient Tobacco Use Status: Never used Tobacco Allergies No Known Allergies Allergy (Verified 04/09/23 16:18) Medication List - Last Reconciled 04/09/23 by Ignacio Mcdonald MD cholecalciferol (vitamin D3) 50 mcg PO DAILY [id number] serr PO Do you need a note to return to daycare/school/sports/work: No HPI EP rash on left leg (lobby) HPI Details 57-year-old female presents to the office for a sick visit. Patient is complaining of a rash on the left inner thigh. She was wearing tight jeans yesterday and got wet in the park. REPLACED BY [facility] Medical History Annual physical exam Dupuytren's contracture of right hand Hx of screening mammography Iron deficiency anemia Multinodular goiter Neck pain Overweight RBBB Thyroid nodule Surgical History H/O colonoscopy History of right knee surgery Family History Father No problems noted. Mother A-fib Other Mental health disorder Substance use disorder Social History Housing: Apartment Alcohol intake: current Alcohol intake frequency: a few times a month Patient Tobacco Use Status: Never used Tobacco e-Cigarette/Vaping Use: Never Used Current occupational status: employed Cognitive needs: No Hearing needs: No Vision needs: Yes Physical Exam Vital Signs: Last Vital Signs Temp 97.3 F 04/09/23 15:39 Pulse 87 04/09/23 15:39 BP 102/62 04/09/23 15:39 Pulse Ox 98 04/09/23 15:39 Oxygen Delivery Method Room Air 04/09/23 15:39 Skin Other: Left thigh: Small erythematous area 3 centimetres in size. Central hyperemia. No vesicles or pustules. Assessment & Plan Assessment & Plan (1) Rash: Code(s): R21 - Rash and other nonspecific skin eruption Plan: May be due to irritation or bug bite. Hydrocortisone cream called in. Coding Level of Care Code Est Pt Level 3 (96099) Diagnoses Rash R21
[2023-04-09 15:39] VITALS: BP 102/62; PULSE 87; TEMP 36.3; O2SAT 98
== END 2023-04-09 16:52 | disposition home or self-care (01) ==
PROVIDERS: PCP Internal Medicine; Visit Provider Internal Medicine
DX: R21 Rash and other nonspecific skin eruption (principal)
CPT/HCPCS: 99213

== ENCOUNTER 2023-05-02 08:03 | Outpatient (REF) | payer OTHER, SELFPAY ==
--- NOTE | ~2023-05-02 | MR_ITS ---
EXAMINATION: MR LUMBAR SPINE WITHOUT CONTRAST CLINICAL INFORMATION: Sciatica COMPARISON: None TECHNIQUE: MRI of the lumbar spine was obtained using routine sequences without contrast. FINDINGS: There is transitional lumbosacral anatomy. For the purposes of this dictation, the last well-formed disc space is designated L5-S1 and there is a rudimentary disc space at S1-S2. Normal anatomic alignment. No suspicious marrow signal or focal osseous lesion. No significant marrow edema. The vertebral body heights are maintained. Mild disc desiccation at L4-L5 and L5-S1. The conus medullaris terminates at the level of L1-L2. The distal spinal cord is normal in appearance. The cauda equina nerve roots appear normal. No significant abnormalities of the paraspinal musculature. Limited evaluation of the intra-abdominal structures without significant abnormalities. The abdominal aorta is of normal contour and caliber. SPINAL LEVELS: L1-L2: No significant spinal canal or neuroforaminal narrowing. L2-L3: No significant spinal canal or neuroforaminal narrowing. Facet arthropathy. L3-L4: Shallow disc bulge and moderate facet arthropathy. No significant central spinal canal stenosis. Mild bilateral neural foraminal narrowing L4-L5: Shallow disc bulge with small posterior annular fissure. Moderate facet arthropathy. Mild subarticular zone narrowing and mild bilateral neural foraminal narrowing L5-S1: No significant spinal canal or neural foraminal narrowing. Severe right and moderate left facet arthropathy. MR/MR lumbar spine wo con IMPRESSION: 1. Transitional lumbosacral anatomy with numbering convention as above. 2. Multilevel degenerative changes of the lumbar spine as described above, most notable for moderate to severe facet arthropathy at L4-L5 and L5-S1. No significant spinal canal stenosis or high-grade neural foraminal narrowing.
== END 2023-05-02 08:04 | disposition home or self-care (01) ==
LOC: HO.MRI 08:03
PROVIDERS: PCP Internal Medicine; Visit Provider Internal Medicine
DX: M54.30 Sciatica, unspecified side (principal); R29.898 Other symptoms and signs involving the musculoskeletal system
CPT/HCPCS: 72148

== ENCOUNTER 2023-05-30 07:48 | Outpatient (AMB) | payer OTHER, SELFPAY ==
--- NOTE | 2023-05-30 07:52 | A.OFFVIS_ITS ---
Intake Vital Signs 05/30/23 07:59 Height 5 ft 7 in Weight 198 lb BMI 31.0 BP 120/78 Blood Pressure Location Rt brachial Position Sitting Pulse 77 Pulse Source Pulse Oximeter Pulse Oximetry (%) 100 Oxygen Delivery Method Room Air Intake Visit Reasons: I-HOME PERFORMANCE CONSULTANT: Sleep Apnea - Confirmed Intake Note: NPV for sleep apnea Artist Color Separation Required: No Allergies No Known Allergies Allergy (Verified 05/30/23 07:53) HPI HPI Comments 2 History of Present Illness Details 57 y/o female patient presents with her for new in-person visit for sleep consultation. Pt reports difficulty falling asleep and staying sleep. She also reports acid reflux and feeling it irritates her lung. She has gasping arousals and can't sleep on her back. She is having very disrupted sleep, wakes up every 3 hrs. Pt was evaluated by ENT recently and diagnosed with deviated septum. She had lower back pain, bilateral arm weakness and legs numbness, but the symptoms has improved after physical therapy. She had vision issue, seeing little floaters, and had brain MRI done and evaluated by ophtalmologist. She will see neurologist to r/o MS. Sleep questionnaire: Have you ever been diagnosed with a sleep disorder? No. Have you ever had a sleep study in the past? No. Have you ever been treated for a sleep disorder? No. Do you take medications for a sleep disorder? tried melatonin once. Do you snore? A little. Do you wake up gasping at night? Yes. Do you have episodes of apneas? No. If yes, are they witnessed? No. Do you have episodes of nocturnal chest pain or dyspnea? Yes. Do you have difficulty initiating sleep? Yes. Do you have difficulty maintaining sleep? Yes. Do you wake up tired? Yes, sometimes. Do you have headaches upon awakening? Not usually. Do you wake up with dry mouth or throat? Yes, sometimes. Do you have GERD? Yes. Do you have nocturia? Yes. Do you have nocturnal leg cramps? Yes. Do you have symptoms of restless legs? No. Do you act out your dreams? No. Sleep hygiene questionnaire: What is your usual sleep routine? Usual bedtime is at 12 -1 am ; Usual wake up time is at 7-9 am. Do you take naps? No. Is your sleep environment cool, dark, and quiet? Yes. Do you exercise? no. Do you take caffeine or other stimulants? No. Do you use electronics in bed? Yes. What is your work schedule? n/a Hypersomnolence questionnaire: Do you have daytime tiredness or fatigue? A little. Do you easily fall asleep when inactive? No. Have you ever had episodes of sudden weakness? No. Have you ever had episodes of sudden weakness associated with strong emotions? No. PFSH Medical History Annual physical exam Dupuytren's contracture of right hand Hx of screening mammography Iron deficiency anemia Multinodular goiter Neck pain Overweight RBBB Thyroid nodule Surgical History H/O colonoscopy History of right knee surgery Family History (Updated 05/30/23 @ 07:59 by Viola Preciado CMA) Father Lung cancer Mother A-fib Other Mental health disorder Substance use disorder Social History (Updated 05/30/23 @ 07:59 by Viola Preciado CMA) Housing: Apartment Alcohol intake: current Alcohol intake frequency: a few times a month Patient Tobacco Use Status: Never used Tobacco e-Cigarette/Vaping Use: Never Used Current occupational status: employed Cognitive needs: No Hearing needs: No Vision needs: Yes Review of Systems Const All systems reviewed & are unremarkable except as noted in HPI and below ENT Reports Normal hearing present Neuro Reports Normal hearing present Physical Exam Vital Signs: Last Vital Signs Pulse 77 05/30/23 07:59 BP 120/78 05/30/23 07:59 Pulse Ox 100 05/30/23 07:59 Oxygen Delivery Method Room Air 05/30/23 07:59 BMI result Body Mass Index 31.0 Const General: cooperative and tired appearing Nutritional Appearance: obese Orientation/consciousness: patient oriented x3 Neck Neck: Yes full ROM and Yes supple Resp Effort & Inspection: normal respiratory effort and able to speak in complete sentences Neuro General: patient oriented x3, gait normal and moves all extremities Cranial nerves: Yes Bilaterally intact EOM present, Yes Normal facial strength present, Yes Midline tongue present, Yes Symmetric palate elevation present, Yes Normal hearing present, Yes Ability to bilaterally rotate head present and Yes Ability to bilaterally elevate shoulders present Cognition (Neuro): normal cognition Gait exam (Neuro): Normal gait present Psych Appearance: grossly normal Mental Status: mental status grossly normal Speech and movement: Normal speech and movement present Affect: normal affect Attitude: cooperative Assessment & Plan Assessment & Plan (1) Daytime sleepiness: Code(s): R40.0 - Somnolence (2) Sleep apnea: Code(s): G47.30 - Sleep apnea, unspecified Plan Pt is advised to undergo home sleep study to assess for sleep apnea. Will f/u with pt after study to discuss results and appropriate treatment options. Sleep hygiene education provided. Advised patient to try magnesium, calcium and vitamin D supplement. Advised patient to read Say Good Night to Insomnia and practice the 6 weeks sleep hygiene education. Pt to call with any worsening concerns or questions. Orders: Orders RT home sleep study Today G47.30 - Sleep apnea, unspecified, R06.09 - Other forms of dyspnea, R12 - Heartburn, R40.0 - Somnolence Coding Level of Care Code New Pt Level 4 (08425) Diagnoses Daytime sleepiness R40.0 Sleep apnea G47.30
[2023-05-30 07:59] VITALS: BP 120/78; PULSE 77; O2SAT 100; BMI 31.0
== END 2023-05-30 08:59 | disposition home or self-care (01) ==
PROVIDERS: PCP Internal Medicine; Visit Provider Nurse Practitioner Family
DX: R40.0 Somnolence (principal); G47.30 Sleep apnea, unspecified
CPT/HCPCS: 99204

== ENCOUNTER → 2023-05-30 07:48 | Outpatient (BNVA) | payer OTHER, SELFPAY | PROVIDERS: PCP Internal Medicine; Visit Provider Nurse Practitioner Family ==

== ENCOUNTER 2023-05-31 13:17 | Outpatient (AMB) | payer OTHER, SELFPAY ==
--- NOTE | 2023-05-31 13:20 | A.OFFPC_ITS ---
Vital Signs 05/31/23 13:21 Height 5 ft 7 in Weight 198 lb BMI 31.0 BP 100/64 Blood Pressure Location Rt brachial Position Sitting Pulse 84 Pulse Source Pulse Oximeter Pulse Oximetry (%) 98 Oxygen Delivery Method Room Air Intake Visit Reasons: Hospital follow up visit Intake Note: Pt is here today for Hospital follow up visit. Allergies aspirin Adverse Reaction (Intermediate, Verified 05/31/23 13:47) Stomach Upset Medication List - Last Reconciled 08/17/23 by Kayla Rosario MD cholecalciferol (vitamin D3) 50 mcg PO DAILY hydrocortisone 2.5% 1 appl topical BID PRN omeprazole 20 mg PO DAILY slippery elm bark 1,600 mg PO TID Tobacco use date assessed: 05/31/23 HPI Hospital follow up visit HPI Details Pt presents f/u hospitalization at [facility] for ? TIA , flashing lights and difficulty finding words. MRI showed small blood vessel changes but no CVA. [facility] Medical History Annual physical exam Dupuytren's contracture of right hand Hx of screening mammography Iron deficiency anemia Multinodular goiter Neck pain Overweight RBBB Thyroid nodule Surgical History H/O colonoscopy History of right knee surgery Family History (Updated 05/30/23 @ 07:59 by Viola Preciado CMA) Father Lung cancer Mother A-fib Other Mental health disorder Substance use disorder Social History (Updated 05/30/23 @ 07:59 by Viola Preciado CMA) Housing: Apartment Alcohol intake: current Alcohol intake frequency: a few times a month Patient Tobacco Use Status: Never used Tobacco e-Cigarette/Vaping Use: Never Used Current occupational status: employed Cognitive needs: No Hearing needs: No Vision needs: Yes Questionnaire Thrive Questionnaire Date Thrive assessed: 12/18/22 ISABEL-7 AMB Questionnaire ISABEL-7 Date ISAEBL - 7 assessed: 12/18/22 Source: Developed by Drs. Patricio Penaloza, Zulma Moya, Harris Cody and colleagues, with an educational mychal from [email or web address]. Review of Systems Const All systems reviewed & are unremarkable except as noted in HPI and below Reports no additional complaints Eyes Reports no additional complaints ENT Reports no additional complaints Card Reports no additional complaints Resp Reports no additional complaints GI Reports no additional complaints Reports no additional complaints Musc Reports no additional complaints Physical exam (Primary Care) Vital Signs: Last Vital Signs Pulse 84 05/31/23 13:21 BP 100/64 05/31/23 13:21 Pulse Ox 98 05/31/23 13:21 Oxygen Delivery Method Room Air 05/31/23 13:21 BMI result Body Mass Index 31.0 Tobacco/Smoking Status: Tobacco use Status Tobacco use date assessed 05/31/23 05/31/23 13:29 Patient Tobacco Use Status Never used Tobacco 05/31/23 13:24 e-Cigarette/Vaping Use Never Used 05/31/23 13:24 Thrive Assessment: Date of Thrive Assessment Date Thrive assessed 12/18/22 05/31/23 13:24 Const General: no acute distress HENMT General nose exam: Normal external nose present Mouth: Normal oral and palatal mucosa present Eyes General: appearance normal, both eyes and all related structures Neck Neck: Yes supple Resp Effort & Inspection: normal respiratory effort Auscultation: clear to auscultation bilaterally Cardio Rhythm: regular rhythm Heart sounds: S1 normal heart sound present and S2 normal heart sound present GI Inspection: Yes normal to inspection Palpation (GI): Soft to palpation Neuro Cranial nerves: Yes CN's II-XII intact bilaterally Cognition (Neuro): normal cognition Gait exam (Neuro): Normal gait present Motor exam (neuro): 5/5 motor strength present throughout Romberg Test: Negative Assessment and Plan Assessment & Plan (1) Muscle weakness of all 4 extremities: Code(s): M62.81 - Muscle weakness (generalized) Plan: referral to neurology Coding Level of Care Code Est Pt Level 3 (19798) Diagnoses Muscle weakness of all 4 extremities M62.81
[2023-05-31 13:21] VITALS: BP 100/64; PULSE 84; O2SAT 98; BMI 31.0
== END 2023-05-31 14:53 | disposition home or self-care (01) ==
PROVIDERS: PCP Internal Medicine; Visit Provider Internal Medicine
DX: M62.81 Muscle weakness (generalized) (principal)
CPT/HCPCS: 99213

== ENCOUNTER → 2023-07-18 09:00 | Outpatient (REF) | payer OTHER, SELFPAY | LOC: HO.SL 09:00 | PROVIDERS: PCP Internal Medicine; Visit Provider Nurse Practitioner Family | DX: R06.09 Other forms of dyspnea (principal); R12 Heartburn; G47.30 Sleep apnea, unspecified; R40.0 Somnolence | CPT/HCPCS: 95806 ==

== ENCOUNTER → 2023-07-18 09:13 | Outpatient (BNV) | payer OTHER, SELFPAY | PROVIDERS: PCP Internal Medicine; Visit Provider Psychiatry & Neurology Neurology | DX: R06.83 Snoring (principal) | CPT/HCPCS: 95806 ==

== ENCOUNTER 2023-11-28 10:09 | Outpatient (AMB) | payer OTHER, SELFPAY ==
--- NOTE | 2023-11-28 10:11 | A.OFFVIS_ITS ---
Intake Vital Signs 11/28/23 10:23 Height 5 ft 7 in Weight 210 lb 6 oz BMI 32.9 BP 122/79 Blood Pressure Location Rt brachial Position Sitting Pulse 68 Pulse Source Pulse Oximeter Pulse Oximetry (%) 98 Oxygen Delivery Method Room Air Intake Visit Reasons: 4 mo f/u -[facility] - [facility] w/address Intake Note: Patient presents for 4 month F/U. Allergies aspirin Adverse Reaction (Intermediate, Verified 11/28/23 10:18) Stomach Upset Medication List - Last Reconciled 11/28/23 by Elmo Riley CNP cholecalciferol (vitamin D3) 50 mcg PO DAILY HPI HPI Comments History of Present Illness Details 58 y/o female patient presents for follo w up of sleep study. The home sleep study was inconclusive. The AHI was less than 1/hr and oxygen presley was 77%. Pt reports she had hard time to sleep with the sleep study equipment. She also could not sleep, woke up many times to change her position due to lower back discomfort. She has been doing physical therapy and exercise for lower back pain. Pt doesn't want to do repeat sleep study at this time. [facility] Medical History Annual physical exam Dupuytren's contracture of right hand Hx of screening mammography Iron deficiency anemia Multinodular goiter Neck pain Overweight RBBB Thyroid nodule Surgical History H/O colonoscopy History of right knee surgery Family History Father Lung cancer Mother A-fib Other Mental health disorder Substance use disorder Social History Housing: Apartment Alcohol intake: current Alcohol intake frequency: a few times a month Patient Tobacco Use Status: Never used Tobacco e-Cigarette/Vaping Use: Never Used Current occupational status: employed Cognitive needs: No Hearing needs: No Vision needs: Yes Review of Systems Const All systems reviewed & are unremarkable except as noted in HPI and below ENT Reports Normal hearing present Neuro Reports Normal hearing present Physical Exam Vital Signs: Last Vital Signs Pulse 68 11/28/23 10:23 BP 122/79 11/28/23 10:23 Pulse Ox 98 11/28/23 10:23 Oxygen Delivery Method Room Air 11/28/23 10:23 BMI result Body Mass Index 32.9 Const General: cooperative Nutritional Appearance: obese Orientation/consciousness: patient oriented x3 Neck Neck: Yes full ROM and Yes supple Resp Effort & Inspection: normal respiratory effort and able to speak in complete sentences Neuro General: patient oriented x3, gait normal and moves all extremities Cranial nerves: Yes Bilaterally intact EOM present, Yes Normal facial strength present, Yes Midline tongue present, Yes Symmetric palate elevation present, Yes Normal hearing present, Yes Ability to bilaterally rotate head present and Yes Ability to bilaterally elevate shoulders present Cognition (Neuro): normal cognition Gait exam (Neuro): Normal gait present Psych Appearance: grossly normal Mental Status: mental status grossly normal Speech and movement: Normal speech and movement present Affect: normal affect Attitude: cooperative Assessment & Plan Assessment & Plan (1) Daytime sleepiness: Code(s): R40.0 - Somnolence (2) Difficulty sleeping: Code(s): G47.9 - Sleep disorder, unspecified Plan Pt will call if she want to have repeat sleep study. Continue to practice good sleep hygiene and take magnesium and vitamin D supplement. Continue to do daily exercise. Coding Level of Care Code Est Pt Level 3 (95081) Diagnoses Daytime sleepiness R40.0 Difficulty sleeping G47.9
[2023-11-28 10:23] VITALS: BP 122/79; PULSE 68; O2SAT 98; BMI 32.9
== END 2023-11-28 11:17 | disposition home or self-care (01) ==
PROVIDERS: PCP Internal Medicine; Visit Provider Nurse Practitioner Family
DX: R40.0 Somnolence (principal); G47.9 Sleep disorder, unspecified
CPT/HCPCS: 99213

== ENCOUNTER → 2023-11-28 10:09 | Outpatient (BNVA) | payer OTHER, SELFPAY | PROVIDERS: PCP Internal Medicine; Visit Provider Nurse Practitioner Family ==

== ENCOUNTER 2023-12-18 11:17 | Outpatient (REF) | payer OTHER, SELFPAY ==
[2023-12-18 13:35] LABS: Appearance Urine Clear; Color Urine Yellow; Glucose Urine UA Negative (Negative); Leukocyte Esterase Urine Trace (Negative); Nitrite Urine Negative (Negative); PH 7.5 (5.0-9.0); Specific Gravity - Urine <= 1.005 (1.005-1.025); UMIC TRIGGER UA YES; Urine Blood Negative (Negative); Urine Ketones Negative (Negative); Urine Protein Negative (Neg-Trace)
[2023-12-18 13:41] LABS: Bacteria Urine None Seen (None Seen); Hyaline Casts Urine 0-2 /LPF (0-2); RBC Urine 0-2 /HPF (0-2); Squamous Epithelial Cell Urine 0-2 /HPF (0-2); WBC Urine 0-5 /HPF (0-5)
[2023-12-18 13:46] LABS: MANUAL DIFF FLAG NO
[2023-12-18 13:59] LABS: Hematocrit 38.3 % (37.0-47.0); Hemoglobin 12.6 g/dl (12.0-16.0); Imm Gran Abs Auto 0.01 X10*3/uL (0.00-0.03); Imm Gran Pct Auto 0.2 % (0.0-0.4); Lymphocytes Absolute Auto 1.7 X10*3/uL (1.2-4.9); Lymphocytes Percent Auto 41.1 % (20-40); Mean Corpuscular HGB Conc 32.9 g/dl (31.0-35.0); Mean Corpuscular Hemoglobin 30.1 pg (27.0-33.0); Mean Corpuscular Volume 91.6 fL (80.0-98.0); Monocytes Absolute Auto 0.4 X10*3/uL (0.1-1.2); Monocytes Percent Auto 8.8 % (2-11); Neutrophils Percent Auto 47.9 % (45-73); Platelet Count 286 X10*3/uL (160-400); Red Blood Count 4.18 X10*6/uL (4.20-5.50); Red Cell Distribution Width 13.4 % (11.0-16.0); White Blood Count 4.1 X10*3/uL (4.8-10.8)
[2023-12-18 17:29] LABS: Alanine Aminotransferase 19 U/L (0-31); Albumin Level 4.1 g/dL (3.5-5.0); Alkaline Phosphatase 59 U/L (39-117); Anion Gap 12 (12-20); Aspartate Amino Transferase 19 U/L (5-31); Bilirubin Total 0.5 mg/dL (0.0-1.0); Blood Urea Nitrogen 11 mg/dL (9-16); Calcium 9.1 mg/dL (8.4-10.2); Carbon Dioxide 27 mmol/L (22-29); Chloride 103 mmol/L (96-108); Cholesterol 203 mg/dL (<200); Estimated Glomerular Filt Rate > 60; Glucose Fasting 91 mg/dL (60-99); HDL Cholesterol 74 mg/dL (>40); LDL Cholesterol Calculated 119 mg/dL (<100); Potassium 4.1 mmol/L (3.3-5.1); Sodium 138 mmol/L (135-145); TSH reflex Free T4 1.21 uIU/mL (0.32-4.0); Triglycerides 51 mg/dL (<150); Vitamin D 25-OH Total 52.9 ng/mL (>30)
== END 2023-12-18 11:18 | disposition home or self-care (01) ==
LOC: HO.HMGCLDS 11:17
PROVIDERS: PCP Internal Medicine; Visit Provider Internal Medicine
DX: Z00.00 Encounter for general adult medical examination without abnormal findings (principal); Z13.6 Encounter for screening for cardiovascular disorders
CPT/HCPCS: 36415; 80053; 80061; 81001; 82306; 84443; 85025

== ENCOUNTER 2023-12-25 10:19 | Outpatient (AMB) | payer OTHER, SELFPAY ==
[2023-12-25 10:21] VITALS: BP 118/76; PULSE 84; O2SAT 97; BMI 32.9
--- NOTE | 2023-12-25 10:21 | MHC.PC.OV ---
Vital Signs 12/25/23 10:21 Height 5 ft 7 in Weight 210 lb BMI 32.9 BP 118/76 Blood Pressure Location Rt brachial Position Sitting Pulse 84 Pulse Source Pulse Oximeter Pulse Oximetry (%) 97 Oxygen Delivery Method Room Air Intake Visit Reasons: PE Intake Note: Pt is here today for PE. Allergies aspirin Adverse Reaction (Intermediate, Verified 12/25/23 10:23) Stomach Upset Medication List - Last Reconciled 12/25/23 by Kayla Rosario MD [bosweilla 500 mg capsules BID] cholecalciferol (vitamin D3) 50 mcg PO DAILY magnesium glycinate 133 mg PO Tobacco use date assessed: 12/25/23 Dental Screening Dental Screen Date: 12/25/23 Did you have a dental visit in the last 12 months?: Yes Did you have a dental problem in the last 6 months where you did not have access to dental care?: No Was dental information given to patient?: Patient has dentist HPI PE HPI Details Pt presents for PE. Patient complains of chronic lower back pain radiating to lower extremities when standing for long time. walking or lifting heavy. She has tried physical therapy with some relief. She works at [employer]. [facility] Medical History (Updated 12/25/23 @ 11:45 by Kayla Rosario MD) Dupuytren's contracture of right hand Hx of screening mammography Thyroid nodule Multinodular goiter Neck pain Overweight Annual physical exam Iron deficiency anemia Surgical History H/O colonoscopy History of right knee surgery Family History Father Lung cancer Mother A-fib Other Mental health disorder Substance use disorder Social History Housing: Apartment Alcohol intake: current Alcohol intake frequency: a few times a month Patient Tobacco Use Status: Never used Tobacco e-Cigarette/Vaping Use: Never Used service: No Current occupational status: employed Cognitive needs: No Hearing needs: No Vision needs: Yes Questionnaire PHQ-9 Over the last 2 weeks, how often have you been bothered by any of the following problems? 1. Little interest or pleasure in doing things: not at all 2. Feeling down, depressed, or hopeless: not at all 3. Trouble falling or staying asleep, or sleeping too much: several days 4. Feeling tired or having little energy: not at all 5. Poor appetite or overeating: not at all 6. Feeling bad about yourself - or that you are a failure or have let yourself or your family down: not at all 7. Trouble concentrating on things, such as reading the newspaper or watching television: not at all 8. Moving or speaking so slowly that other people could have noticed. Or the opposite - being so fidgety or restless that you have been moving around a lot more than usual: not at all 9. Thoughts that you would be better off or of hurting yourself in some way: not at all Total score: 1 Depression Screening Interpretation: Negative Depression Screening Done: Yes Source: Developed by Drs. Patricio Penaloza, Zulma Moya, Harris Cody and colleagues, with an educational mychal from [employer]. Thrive Questionnaire Date Thrive assessed: 12/25/23 I am a: Patient What is your living situation today?: I have a steady place to live Within the past 12 months, did the food you bought not last and you didn't have the money to get more?: Never true Within the past 12 months, did you worry whether your food would run out before you got money to buy more?: Never true Do you have trouble paying for medicines?: No Do you have trouble getting transportation to medical appointments?: No Do you have trouble paying your heating and electricity bill?: No Do you have trouble taking care of your child, family member or friend?: No Do you have trouble with day-to-day activities such as bathing, preparing meals, shopping, managing finances, etc.?: No Are you currently unemployed and looking for a job?: No Are you interested in more education?: No Please select the resources that you would like help with: None THRIVE Score: 0 AUDIT C Alcohol Use Questionnaire (AUDIT-C) 1. How often do you have a drink containing alcohol?: Monthly or less 2. How many drinks containing alcohol do you have on a typical day when you are drinking?: 1 or 2 3. How often do you have six or more drinks on one occasion?: Never Total Score: 1 ISABEL-7 AMB Questionnaire ISABEL-7 Date ISABEL - 7 assessed: 12/25/23 Feeling nervous, anxious, or on edge: 0 = Not at all Not being able to stop or control worryin = Not at all Worrying too much about different things: 0 = Not at all Trouble relaxin = Not at all Being so restless that it is hard to sit still: 0 = Not at all Becoming easily annoyed or irritable: 0 = Not at all Feeling afraid as if something awful might happen: 0 = Not at all Total ISABEL-7 score (0-4 normal; 5-9 mild; 10-14 moderate; 15-21 severe): 0 Source: Developed by Drs. Patricio Penaloza, Zulma Moya, Harris Cody and colleagues, with an educational mychal from [employer]. Review of Systems Const All systems reviewed & are unremarkable except as noted in HPI and below Reports no additional complaints Eyes Reports no additional complaints ENT Reports no additional complaints Card Reports no additional complaints Resp Reports no additional complaints GI Reports no additional complaints Reports no additional complaints Physical exam (Primary Care) Vital Signs: Last Vital Signs Pulse 84 12/25/23 10:21 BP 118/76 12/25/23 10:21 Pulse Ox 97 12/25/23 10:21 Oxygen Delivery Method Room Air 12/25/23 10:21 BMI result Body Mass Index 32.9 Tobacco/Smoking Status: Tobacco use Status Tobacco use date assessed 12/25/23 12/25/23 10:28 Patient Tobacco Use Status Never used Tobacco 12/25/23 10:28 e-Cigarette/Vaping Use Never Used 12/25/23 10:28 PHQ-9: PHQ-9 Score PHQ-9: Total score 1 12/25/23 10:29 Depression Screening Interpretation: Negative Thrive Assessment: Date of Thrive Assessment Date Thrive assessed 12/25/23 12/25/23 10:29 Const General: no acute distress HENMT Head: Yes normal to inspection Ears: hearing grossly normal bilaterally Face and sinus: Yes normal facial exam Mouth: Normal oral and palatal mucosa present Throat: Yes posterior oropharynx normal Eyes General: appearance normal, both eyes and all related structures Neck Neck: Yes no lymphadenopathy and Yes supple Resp Effort & Inspection: normal respiratory effort Auscultation: clear to auscultation bilaterally Cardio Rhythm: regular rhythm Heart sounds: S1 normal heart sound present and S2 normal heart sound present GI Inspection: Yes normal to inspection Palpation (GI): Soft to palpation Percussion: Yes normal to percussion Auscultation: normal bowel sounds Assessment and Plan Assessment & Plan (1) Thyroid nodule: Comment: referred to endo 09/2021, will f/u Dr. Resendiz, annual US Code(s): E04.1 - Nontoxic single thyroid nodule Plan: Follow-up with endocrinology (2) Annual physical exam: Code(s): Z00.00 - Encounter for general adult medical examination without abnormal findings Plan: Well-balanced diet regular physical activity weight loss discussed with the patient. She is up-to-date with mammogram, will have a colonoscopy scheduled this year and is current with pelvic exam and Pap smear by records officer (3) Chronic lower back pain: Code(s): M54.50 - Low back pain, unspecified; G89.29 - Other chronic pain Plan: Patient was given a letter with work restrictions, Regular physical activity lower back exercises discussed with the patient Orders: Orders Complete Blood Count Auto Diff 1 Year Z00.00 - Encounter for general adult medical examination without abnormal findings UA w Microscopic 1 Year Z00.00 - Encounter for general adult medical examination without abnormal findings AMB EKG-In Office Today R00.2 - Palpitations, R06.09 - Other forms of dyspnea, R12 - Heartburn Comprehensive [place]. Panel Fast 1 Year Z00.00 - Encounter for general adult medical examination without abnormal findings Lipid Panel 1 Year Z00.00 - Encounter for general adult medical examination without abnormal findings TSH reflex Free T4 1 Year Z00.00 - Encounter for general adult medical examination without abnormal findings Vitamin D 25-OH Total 1 Year Z00.00 - Encounter for general adult medical examination without abnormal findings Coding Level of Care Code Est Pt Prev Care 40-64y(98045) Diagnoses Thyroid nodule E04.1 Annual physical exam Z00.00 Chronic lower back pain M54.50; G89.29
== END 2023-12-25 11:33 | disposition home or self-care (01) ==
PROVIDERS: Visit Provider Internal Medicine
DX: E04.1 Nontoxic single thyroid nodule (principal); Z00.00 Encounter for general adult medical examination without abnormal findings; M54.50 Low back pain, unspecified; G89.29 Other chronic pain
CPT/HCPCS: 99396

== ENCOUNTER 2023-12-28 12:53 | Outpatient (AMB) | payer OTHER, SELFPAY ==
--- NOTE | 2023-12-28 13:07 | A.OFFPC_ITS ---
Vital Signs 12/28/23 13:08 Height 5 ft 7 in Weight 210 lb BMI 32.9 BP 120/78 Blood Pressure Location Rt brachial Position Sitting Pulse 99 Pulse Source Pulse Oximeter Pulse Oximetry (%) 97 Oxygen Delivery Method Room Air Intake Visit Reasons: Knee Injury Intake Note: Pt is here today for a sick visit. Pt c/o R knee pain. Pt states that last night she started having pain. Allergies aspirin Adverse Reaction (Intermediate, Verified 12/28/23 13:10) Stomach Upset Medication List - Last Reconciled 12/28/23 by Kayla Rosario MD [bosweilla 500 mg capsules BID] [magnesium glycinate PO BID] magnesium glycinate 133 mg PO [vitamin D3 2500 IU with K2 45mcg PO] Tobacco use date assessed: 12/25/23 Dental Screening Dental Screen Date: 12/25/23 HPI Knee Injury HPI Details Pt c/o acute R knee pain and instability for 1 day. Patient felt sharp discomfort when step around the car and felt her R knee becoming unsteady. She has been wearing a knee brace and start able to put weight on the right leg walking using crutches. She noticed some swelling of the right knee. [facility] Medical History (Updated 12/28/23 @ 13:35 by Kayla Rosario MD) Dupuytren's contracture of right hand Hx of screening mammography Thyroid nodule Multinodular goiter Neck pain Overweight Annual physical exam Iron deficiency anemia Surgical History H/O colonoscopy History of right knee surgery Family History Father Lung cancer Mother A-fib Other Mental health disorder Substance use disorder Social History Housing: Apartment Alcohol intake: current Alcohol intake frequency: a few times a month Patient Tobacco Use Status: Never used Tobacco e-Cigarette/Vaping Use: Never Used service: No Current occupational status: employed Cognitive needs: No Hearing needs: No Vision needs: Yes Questionnaire Thrive Questionnaire Date Thrive assessed: 12/25/23 ISABEL-7 AMB Questionnaire ISABEL-7 Date ISABEL - 7 assessed: 12/25/23 Source: Developed by Drs. Patricio Penaloza, Zulma Moya, Harris Cody and colleagues, with an educational mychal from [employer]. Review of Systems Const All systems reviewed & are unremarkable except as noted in HPI and below Eyes Reports no additional complaints ENT Reports no additional complaints Resp Reports no additional complaints GI Reports no additional complaints Physical exam (Primary Care) Vital Signs: Last Vital Signs Pulse 99 12/28/23 13:08 BP 120/78 12/28/23 13:08 Pulse Ox 97 12/28/23 13:08 Oxygen Delivery Method Room Air 12/28/23 13:08 BMI result Body Mass Index 32.9 Tobacco/Smoking Status: Tobacco use Status Tobacco use date assessed 12/25/23 12/28/23 13:11 Patient Tobacco Use Status Never used Tobacco 12/28/23 13:11 e-Cigarette/Vaping Use Never Used 12/28/23 13:11 Thrive Assessment: Date of Thrive Assessment Date Thrive assessed 12/25/23 12/28/23 13:11 Const General: no acute distress Resp Effort & Inspection: normal respiratory effort Cardio Rhythm: regular rhythm Heart sounds: S1 normal heart sound present and S2 normal heart sound present Extrem Other: Right knee positive Xenia and Ermias test , soft tissue swelling no erythema warmth Assessment and Plan Assessment & Plan (1) Injury of meniscus of right knee: Code(s): S83.8X1A - Sprain of other specified parts of right knee, initial encounter Plan: Obtain right knee MRI to evaluate for ACL and meniscus injury. Orders: Orders MR knee RT wo con Today S83.8X1A - Sprain of other specified parts of right knee, initial encounter Coding Level of Care Code Est Pt Level 3 (34380) Diagnoses Injury of meniscus of right knee S83.8X1A
[2023-12-28 13:08] VITALS: BP 120/78; PULSE 99; O2SAT 97; BMI 32.9
== END 2023-12-28 14:27 | disposition home or self-care (01) ==
PROVIDERS: PCP Internal Medicine; Visit Provider Internal Medicine
DX: S83.8X1A Sprain of other specified parts of right knee, initial encounter (principal)
CPT/HCPCS: 99213

== ENCOUNTER 2024-01-29 09:20 | Outpatient (AMB) | payer OTHER, SELFPAY ==
--- NOTE | 2024-01-29 09:22 | MHC.OFFVIS ---
Vital Signs 01/29/24 09:25 01/29/24 09:29 Height 5 ft 7 in Weight 220 lb 7.396 oz BMI 34.5 BP 140/73 H 130/71 Blood Pressure Location Rt brachial Lt brachial Position Sitting Sitting Pulse 80 Intake Visit Reasons: screening colonoscopy Intake Note: Ailyn presents in the office as a screening for a colonoscopy. CC: Just due for a colonoscopy. [employer] Required: No Allergies aspirin Adverse Reaction (Intermediate, Verified 01/29/24 09:25) Stomach Upset HPI HPI screening colonoscopy: Details: 58 year old? female with past medical history of thyroid nodule, sciatica, sleep apnea, GERD is here today for pre colonoscopy screening.? Patient was sent to us by her PCP.? Last colonoscopy in 2018, no polyps. Patient has family history of CRC, patient's brother of colon cancer at age 53. ? Patient denies any gastrointestinal symptoms in the past or at present.? ? Denies history of difficulty with sedation or anesthesia in the past.? Inconclusive study for sleep apnea.? Denies any history of cardiac, renal, pulmonary, or hepatic disease.?? No history of infectious? diseases like hepatitis A, B, C, HIV or tuberculosis.? Patient is not on any anticoagulation PFSH Medical History Dupuytren's contracture of right hand Hx of screening mammography Thyroid nodule Multinodular goiter Neck pain Overweight Annual physical exam Iron deficiency anemia Surgical History H/O colonoscopy History of right knee surgery Family History Father Lung cancer Mother A-fib Other Mental health disorder Substance use disorder Social History Housing: Apartment Alcohol intake: current Alcohol intake frequency: a few times a month Patient Tobacco Use Status: Never used Tobacco e-Cigarette/Vaping Use: Never Used service: No Current occupational status: employed Cognitive needs: No Hearing needs: No Vision needs: Yes Review of Systems Const Denies weight gain and Denies weight loss ENT Reports no additional complaints, Denies dysphagia and Denies odynophagia Card Reports no additional complaints Resp Reports no additional complaints GI Denies abdominal pain, Denies belching, Denies melena, Denies bloating, Denies change in bowel habits, Denies dysphagia, Denies excessive flatus, Denies dyspepsia, Denies heartburn, Denies diarrhea, Denies loose stools, Denies nausea, Denies odynophagia and Denies vomiting Musc Reports no additional complaints Neuro Reports no additional complaints Psych Reports no additional complaints Endo Reports no additional complaints Physical Exam Vital Signs: Last Vital Signs Pulse 80 01/29/24 09:25 BP 130/71 01/29/24 09:29 BMI result Body Mass Index 34.5 Const General: healthy appearing and no acute distress Nutritional Appearance: obese Orientation/consciousness: patient oriented x3 Resp Effort & Inspection: normal respiratory effort, able to speak in complete sentences, no tracheal deviation and symmetric chest movement Auscultation: clear to auscultation bilaterally Cardio Rate: regular rate GI Inspection: Yes normal to inspection, No distended and Yes obesity Palpation (GI): Soft to palpation, not firm, nontender and No hepatosplenomegaly present Auscultation: normal bowel sounds General: Yes no CVA tenderness Back/Spine/Pelvis Back: no CVA tenderness Skin General skin exam: elasticity normal, turgor normal and dry skin Neuro General: patient oriented x3 Psych Appearance: grossly normal Mental Status: mental status grossly normal Assessment & Plan Assessment & Plan (1) Screen for colon cancer: Code(s): Z12.11 - Encounter for screening for malignant neoplasm of colon Plan Few months ago she had sleep study that was inconclusive for sleep apnea. ? No history of infectious diseases in the past or present.? Not on any anticoagulation therapy.? Family history of CRC.? Patient denies melena, hematochezia, unintentional weight loss or ribbon like stools.? Discussed at length the pre-procedure,? prep, diet & medications as well as what to expect prior, during and after the procedure.?? Stressed the importance of good bowel prep.? Recommended the use of Vaseline or Calmoseptine OTC & baby wipes with bowel movements to promote comfort.? ?Patient verbalizes understanding and agrees to plan of care.? She was given the opportunity to ask questions and all questions answered.? We will see her after the procedure.? Medications: New bisacodyl (Dulcolax (bisacodyl)) take 4 tabs at noon the day before your colonoscopy 20 mg (4 x 5 mg) PO ONCE 4 tabs 0RF 1 day Z12.11 - Encounter for screening for malignant neoplasm of colon polyethylene glycol 3350 (Miralax) As directed by gastroenterology department at [facility] 238 grams PO ONCE 238 grams 0RF Z12.11 - Encounter for screening for malignant neoplasm of colon Coding Level of Care Code New Pt Level 3 (44573) Diagnoses Screen for colon cancer Z12.11 Time Spent (min) 40 Comment 30 minutes spent with patient and additional 10 minutes spent reviewing her records
[2024-01-29 09:25] VITALS: BP 140/73; PULSE 80; BMI 34.5
[2024-01-29 09:29] VITALS: BP 130/71
== END 2024-01-29 10:59 | disposition home or self-care (01) ==
PROVIDERS: PCP Internal Medicine; Visit Provider Nurse Practitioner Family
DX: Z12.11 Encounter for screening for malignant neoplasm of colon (principal); Z01.818 Encounter for other preprocedural examination
CPT/HCPCS: 99203

== ENCOUNTER → 2024-01-29 09:20 | Outpatient (BNVA) | payer OTHER, SELFPAY | PROVIDERS: PCP Internal Medicine; Visit Provider Nurse Practitioner Family ==

== ENCOUNTER 2024-07-08 07:20 | Day surgery (SDC) | payer OTHER, SELFPAY ==
[2024-07-04 10:47] VITALS: BMI 34.5
--- NOTE | 2024-07-07 12:05 | HO.ANESPROP2 ---
Documented by User: Natasha Dunlap NP 07/07/24 12:06 HPI - Anesthesia Eval Consult details Narrative: 59yo F for Colonoscopy PMFSH Active Problems Active Problems: All Active Problems Dupuytren contracture of both hands (Acute) Osteoarthritis of right knee (Acute) Injury of meniscus of right knee (Acute) Chronic lower back pain (Acute) Difficulty sleeping (Acute) Daytime sleepiness (Acute) Rash (Acute) Muscle weakness of all 4 extremities (Acute) Extremity numbness (Acute) Nasal congestion (Acute) Angina of effort (Acute) Postnasal drip (Acute) Dyspnea on exertion (Acute) Heartburn (Acute) Sleep apnea (Acute) Dry mouth (Acute) Weakness of both lower extremities (Acute) Sciatica (Acute) Hx of screening mammography (Acute) Incomplete right bundle branch block (Acute) COVID-19 (Acute) Palpitations (Acute) Annual physical exam (Acute) Dupuytren's contracture of right hand (Acute) Thyroid nodule (Acute) Multinodular goiter (Acute) Neck pain (Acute) Overweight (Acute) Past Medical History Medical History (Updated 07/04/24 @ 10:45 by Eva Wilson RN) Arthritis RBBB (right bundle branch block) Sleep apnea Dupuytren's contracture of right hand Thyroid nodule Multinodular goiter Neck pain Overweight Iron deficiency anemia Family History Family History Father Lung cancer Mother A-fib Other Mental health disorder Substance use disorder Surgical History Surgical History H/O colonoscopy History of right knee surgery Social History Social History Housing: Apartment Are you a primary long term care pharmacist to a significant other at home: No Do you presently have visiting nurse or other home services: No Alcohol intake: current Alcohol intake frequency: a few times a month Patient Tobacco Use Status: Never used Tobacco e-Cigarette/Vaping Use: Never Used service: No Current occupational status: employed Cognitive needs: No Hearing needs: No Vision needs: Yes Meds Allergies Allergy/AdvReac Type Severity Reaction Status Date / Time aspirin AdvReac Intermediate Stomach Verified 01/29/24 09:25 Upset Exam Height,Weight and Vital Signs: Height 5 ft 7 in Weight 100 kg Narrative Narrative: EKG 12/2023 NSR @ 76 ? LAE Assessment and Plan Assessment Anesthesia Assessment: Chart Reviewed Documented by User: Adrian Myers MD 07/08/24 14:09 [facility] Past Medical History Medical History (Updated 07/04/24 @ 10:45 by Eva Wilson RN) Arthritis RBBB (right bundle branch block) Sleep apnea Dupuytren's contracture of right hand Thyroid nodule Multinodular goiter Neck pain Overweight Iron deficiency anemia Family History Family History Father Lung cancer Mother A-fib Other Mental health disorder Substance use disorder Family history of problems with anesthesia: No Surgical History Surgical History H/O colonoscopy History of right knee surgery History of Problems with Anesthesia: No Social History Social History Housing: Apartment Are you a primary long term care pharmacist to a significant other at home: No Do you presently have visiting nurse or other home services: No Alcohol intake: current Alcohol intake frequency: a few times a month Patient Tobacco Use Status: Never used Tobacco e-Cigarette/Vaping Use: Never Used service: No Current occupational status: employed Cognitive needs: No Hearing needs: No Vision needs: Yes Meds Allergies Allergy/AdvReac Type Severity Reaction Status Date / Time aspirin AdvReac Intermediate Stomach Verified 01/29/24 09:25 Upset Exam Airway Mallampati Class: I TM Dist: >3cm Neck ROM: Full Loose/Missing/Broken Teeth: No Assessment and Plan Assessment Anesthesia Assessment: Anesthesia Plan Discussed Final Anesthetic Review Family History of Problems with Anesthesia: No History of Problems with Anesthesia: No NPO: Yes ASA Class: III Final Preanesthetic Review: No Changes in Pt Med Stat, Meds/Allgs Chart Reviewed, Consent Obtained/Reviewed and Anes Risks/Benef Reviewed Patient Risk: Intermediate Procedure Risk: Low Anesthetic Plan Anesthetic Plan: MAC: Disposition: Standard PACU
[2024-07-08 07:31] VITALS: BP 135/83; PULSE 110; RESP 16; TEMP 36.9; O2SAT 100; BMI 35.1
[2024-07-08] MEDS: Lactated Ringers 1,000 ML 100 ML IVCONT (07:42)
--- NOTE | 2024-07-08 08:22 | MHC.SHP ---
Pre-Procedural Eval Section A - 24 Hr Update-Section A only Date of Service: 07/08/24 Section B - Complete if H&P > 30 days Chief Complaint: screening Relevant Family History (Specify if Yes): Yes Relevant Social History: None Present Medications: see Short Stay Collaborative assessment Medical History: Significant History (Arthritis RBBB (right bundle branch block) Sleep apnea Dupuytren's contracture of right hand Thyroid nodule Multinodular goiter Neck pain Overweight Iron deficiency anemia) History of Previous Operations: Relevant previous surgery/procedure and date(s) (H/O colonoscopy History of right knee surgery) Allergies: Allergies Allergy/AdvReac Type Severity Reaction Status Date / Time aspirin AdvReac Intermediate Stomach Verified 01/29/24 09:25 Upset Review of Systems Sugical H&P ROS: Negative: Constitution, Cardiovascular, Respiratory, Neurological, Psychiatric, Hem-Onc, Allergic/Immunologic, Gastrointestinal, Genitourinary, Musculoskeletal, Integumentary, Endocrine and Eyes/Ears/Nose/Throat Exam Surgical H&P Exam: Normal: HEENT, Normal: Heart, Normal: Lungs, Normal: Extremities, Normal: Abdomen, Normal: Skin and Normal: Neurological Plan Diagnosis/Plan: Unchanged I have reviewed the history and physical and performed a pertinent physical examination on my patient. No changes have occurred unless specified. Time Spent With Patient Time: Total time managing care of this patient today ____ minutes.
--- NOTE | 2024-07-08 08:58 | HO.OPN-COLON ---
Colonoscopy Operative Note Operative Note Date of Service: 07/08/24 Narrative: Operative Information Procedure Description: Colonoscopy Indication: screening Anesthesia: MAC COLONOSCOPY Instrument: Olympus variable stiffness pediatric scope 190L Colonoscopy Monitoring: Vital signs and clinical assessment, continuous EKG monitoring, Pulse oximetry, Carbon Dioxide monitoring and blood pressure monitoring were done throughout the procedure. Colon withdrawal time was 11 minutes. Procedure: The patient was placed in the left lateral decubitis position and pre-procedure medications were administered. After a digital rectal examination of the ano-rectum, the video colonoscope was inserted into the rectum and advanced through the colon to the cecum/TI. The colonoscope was slowly withdrawn in a retrograde panoramic fashion and the colon mucosa was carefully examined including a retroflexed view of the rectum. Findings and interventions are described below. Procedure Difficulty: moderate Findings: Terminal Ileum-normal Cecum:normal Right sided retroflexion- normal Ascending Colon: normal Transverse Colon -normal Descending Colon:normal Sigmoid Colon: diverticulosis Rectum: Retroflexion with small internal hemorrhoids seen, grade I, 4-6 mm sessile polyp removed with cold snare Anorectum - normal Intervention: cold snare Colon preparation: [place] Bowel Preparation Scale Right colon; 2 Transverse colon: 2 Left colon; 2 (0 = Unprepared colon segment with mucosa not seen due to solid stool that cannot be cleared. 1 = Portion of mucosa of the colon segment seen, but other areas of the colon segment not well seen due to staining, residual stool and/or opaque liquid. 2 = Minor amount of residual staining, small fragments of stool and/or opaque liquid, but mucosa of colon segment seen well. 3 = Entire mucosa of colon segment seen well with no residual staining, small fragments of stool or opaque liquid) Impression and Post Procedure Diagnosis: diverticulosis colon polyp internal hemorrhoids Plan: High fiber diet leaflet Avoid straining at stool, epsom salts and sitz bath, anusol supps or cream Repeat Colonoscopy in 5 years due to FH or earlier if clinically indicated Above findings were reviewed with the patient and relevant handouts were provided if indicated.
[2024-07-08 09:10] VITALS: BP 106/64; PULSE 81; RESP 16; TEMP 37; O2SAT 100
[2024-07-08 09:29] VITALS: BP 108/71; PULSE 79; RESP 14; TEMP 36.2; O2SAT 100
== END 2024-07-08 10:06 | disposition home or self-care (01) ==
PROVIDERS: PCP Internal Medicine; Visit Provider Internal Medicine Gastroenterology
PROC: 0DJD8ZZ Inspection of Lower Intestinal Tract, Via Natural or Artificial Opening Endoscopic (ICD-10-PCS; CPT 45378; principal; 2024-07-08 09:10)
DX: Z12.11 Encounter for screening for malignant neoplasm of colon (principal); K62.1 Rectal polyp; K57.30 Diverticulosis of large intestine without perforation or abscess without bleeding; K64.0 First degree hemorrhoids; Z80.0 Family history of malignant neoplasm of digestive organs; D50.9 Iron deficiency anemia, unspecified; G47.30 Sleep apnea, unspecified
CPT/HCPCS: 45385; 88305; J2003; J2704

== ENCOUNTER → 2024-07-08 07:20 | Outpatient (BNV) | payer OTHER, SELFPAY | PROVIDERS: PCP Internal Medicine; Visit Provider Internal Medicine Gastroenterology | DX: Z12.11 Encounter for screening for malignant neoplasm of colon (principal); K63.5 Polyp of colon; K57.30 Diverticulosis of large intestine without perforation or abscess without bleeding; K64.0 First degree hemorrhoids | CPT/HCPCS: 45385 ==

== ENCOUNTER 2024-07-22 09:58 | Outpatient (AMB) | payer OTHER, SELFPAY ==
--- NOTE | 2024-07-22 09:59 | A.OFFVIS_ITS ---
Vital Signs 07/22/24 10:00 Height 5 ft 7 in Weight 225 lb 12.054 oz BMI 35.4 BP 140/76 H Blood Pressure Location Rt brachial Position Sitting Pulse 88 Pulse Source Pulse Oximeter Pulse Oximetry (%) 100 Oxygen Delivery Method Room Air Intake Visit Reasons: S/p colon Intake Note: Relevant Flags or Indicators ? Requires Turner Off? N Ailyn presents in office today for a scheduled s/p colo FUV. CC; No recent labs, diagnostics, or med orders placed. ? Relevant GI Sx as reported per pt? None ? Hx of any recent surgeries? [place] w/ Dr. Montoya Turner Off Required: No Allergies aspirin Adverse Reaction (Intermediate, Verified 07/22/24 10:04) Stomach Upset HPI HPI S/p colon: Details: LAST VISIT: Screen for colon cancer Plan Few months ago she had sleep study that was inconclusive for sleep apnea. ? No history of infectious diseases in the past or present.? Not on any anticoagulation therapy.? Family history of CRC.? Patient denies melena, hematochezia, unintentional weight loss or ribbon like stools.? Discussed at length the pre-procedure,? prep, diet & medications as well as what to expect prior, during and after the procedure.?? Stressed the importance of good bowel prep.? Recommended the use of Vaseline or Calmoseptine OTC & baby wipes with bowel movements to promote comfort.? ?Patient verbalizes understanding and agrees to plan of care.? She was given the opportunity to ask questions and all questions answered.? We will see her after the procedure.? Medications New bisacodyl (Dulcolax (bisacodyl)) take 4 tabs at noon the day before your colonoscopy 20 mg (4 x 5 mg) PO ONCE 4 tabs 0RF 1 day Z12.11 polyethylene glycol 3350 (Miralax) As directed by gastroenterology department at [facility] 238 grams PO ONCE 238 grams 0RF Z12.11 COLONOSCOPY: Findings: Terminal Ileum-normal Cecum:normal Right sided retroflexion- normal Ascending Colon: normal Transverse Colon -normal Descending Colon:normal Sigmoid Colon: diverticulosis Rectum: Retroflexion with small internal hemorrhoids seen, grade I, 4-6 mm sessile polyp removed with cold snare Anorectum - normal Intervention: cold snare Colon preparation: [place] Bowel Preparation Scale Right colon; 2 Transverse colon: 2 Left colon; 2 (0 = Unprepared colon segment with mucosa not seen due to solid stool that cannot be cleared. 1 = Portion of mucosa of the colon segment seen, but other areas of the colon segment not well seen due to staining, residual stool and/or opaque liquid. 2 = Minor amount of residual staining, small fragments of stool and/or opaque liquid, but mucosa of colon segment seen well. 3 = Entire mucosa of colon segment seen well with no residual staining, small fragments of stool or opaque liquid) Impression and Post Procedure Diagnosis: diverticulosis colon polyp internal hemorrhoids Plan: High fiber diet leaflet Avoid straining at stool, epsom salts and sitz bath, anusol supps or cream Repeat Colonoscopy in 5 years due to FH or earlier if clinically indicated PATHOLOGY Diagnosis Rectum, polypectomy: Hyperplastic mucosal polyp TODAY'S VISIT Patient is here today for follow-up and to discuss colonoscopy results. Rectal polyp found on colonoscopy hyperplastic. However due to patient's family history of CRC she will need to return for colonoscopy in 5 years. Diverticulosis of sigmoid colon. Patient reports that she eats lots of not and vegetables. Denies any abdominal pain or discomfort. Patient denies any issues with anesthesia, prepped or procedure itself. Patient reports to be feeling well, denies any GI concerning symptoms at this time. Patient denies any melena, hematochezia. Patient denies any dyspepsia, dysphagia or odynophagia PFSH Medical History Arthritis RBBB (right bundle branch block) Sleep apnea Dupuytren's contracture of right hand Thyroid nodule Multinodular goiter Neck pain Overweight Iron deficiency anemia Surgical History H/O colonoscopy History of right knee surgery Family History Father Lung cancer Mother A-fib Other Mental health disorder Substance use disorder Social History Housing: Apartment Are you a primary healthcare administrative assistant to a significant other at home: No Do you presently have visiting nurse or other home services: No Alcohol intake: current Alcohol intake frequency: a few times a month Patient Tobacco Use Status: Never used Tobacco e-Cigarette/Vaping Use: Never Used service: No Current occupational status: employed Cognitive needs: No Hearing needs: No Vision needs: Yes Review of Systems Const Denies weight gain and Denies weight loss ENT Reports no additional complaints, Denies dysphagia and Denies odynophagia Card Reports no additional complaints Resp Reports no additional complaints GI Denies abdominal pain, Denies belching, Denies melena, Denies bloating, Denies change in bowel habits, Denies dysphagia, Denies excessive flatus, Denies dyspepsia, Denies heartburn, Denies diarrhea, Denies loose stools, Denies nausea, Denies odynophagia and Denies vomiting Musc Reports no additional complaints Neuro Reports no additional complaints Psych Reports no additional complaints Endo Reports no additional complaints Physical Exam Vital Signs: Last Vital Signs Pulse 88 07/22/24 10:00 BP 140/76 H 07/22/24 10:00 Pulse Ox 100 07/22/24 10:00 Oxygen Delivery Method Room Air 07/22/24 10:00 BMI result Body Mass Index 35.4 Const General: healthy appearing and no acute distress Nutritional Appearance: obese Orientation/consciousness: patient oriented x3 Resp Effort & Inspection: normal respiratory effort, able to speak in complete sentences, no tracheal deviation and symmetric chest movement Auscultation: clear to auscultation bilaterally Cardio Rate: regular rate GI Inspection: Yes normal to inspection, No distended and Yes obesity Palpation (GI): Soft to palpation, not firm, nontender and No hepatosplenomegaly present Auscultation: normal bowel sounds General: Yes no CVA tenderness Back/Spine/Pelvis Back: no CVA tenderness Skin General skin exam: elasticity normal, turgor normal and dry skin Neuro General: patient oriented x3 Psych Appearance: grossly normal Mental Status: mental status grossly normal Assessment & Plan Assessment & Plan (1) Status post colonoscopy: Code(s): Z98.890 - Other specified postprocedural states Plan Colonoscopy in 5 years, follow-up in the office on as needed basis. Discussed the importance of high-fiber diet, probiotics. Increase fluid intake and activity to promote better bowel motility. Patient will call our office if she will have any GI concerning symptoms. She is agreeable to this plan and verbalizes understanding of instructions. She was given the opportunity to ask questions and all questions answered. Thank you for allowing me to participate in her care Coding Level of Care Code Est Pt Level 3 (61385) Diagnoses Status post colonoscopy Z98.890 Time Spent (min) 25 Comment 15 minutes spent with patient and additional 10 minutes spent reviewing her records
[2024-07-22 10:00] VITALS: BP 140/76; PULSE 88; O2SAT 100; BMI 35.4
== END 2024-07-22 11:21 | disposition home or self-care (01) ==
PROVIDERS: PCP Internal Medicine; Visit Provider Nurse Practitioner Family
DX: Z98.890 Other specified postprocedural states (principal)
CPT/HCPCS: 99213

== ENCOUNTER → 2024-07-22 09:58 | Outpatient (BNVA) | payer OTHER, SELFPAY | PROVIDERS: PCP Internal Medicine; Visit Provider Nurse Practitioner Family ==

== ENCOUNTER 2024-12-27 10:11 | Outpatient (REF) | payer OTHER, SELFPAY ==
--- OUTSIDE RECORDS SUMMARY | 2024-12-27 10:13 | XMS_ITS | Patient Health Record ---
Author Organization [facility] Address [address] [address] Care Team Providers Care Train Operations Supervisor Name Role Phone Abraham Kayla Primary Care Provider RASHI Claudio Unavailable [phone] Allergies No Known Allergies Reason For Referral No Information Medications Medication SIG (Take, Route, Frequency, Duration) Notes Start Date End Date Status Diclofenac Sodium 1 % 1 gm to each foot Externally twice daily as needed for 30 days 08/06/2024 Active Magnesium Glycinate 133MG Not-Taking Vitamin D3 50 MCG (1999) 1 capsule Orally Once a day Active Vitamin K2 100 MCG as directed Orally Active Boswellia 500MG BID Not-Taking Problems Problem Type SNOMED Code ICD Code Onset Dates Problem Status W/U Status Risk Notes Problem 702830025092724 Primary osteoarthritis, right ankle and foot (M19.071) Active confirmed Problem 714609597 Primary osteoarthritis, left ankle and foot (M19.072) Active confirmed Problem 81326674 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 [address] [address] 08/06/2024 RASHI VICTOR Pain in right foot M79.671 ; Pain in left foot M79.672 ; Primary osteoarthritis, right ankle and foot M19.071 ; Primary osteoarthritis, left ankle and foot M19.072 ; Plantar fibromatosis M72.2 ; Flat foot [pes planus] (acquired), right foot M21.41 and Flat foot [pes planus] (acquired), left foot M21.42 [facility] [address] [address] 07/15/2024 RASHI VICTOR [facility] [address] [address] 08/06/2024 RAHSI VICTOR Assessments Encounter Date Diagnosis (ICD Code) Assessment Notes Treatment Notes Treatment Clinical Notes Section Notes 08/06/2024 Pain in right foot (ICD-10 - M79.671) This is an outpatient visit for evaluation and management of a new patient, which required appropriate review of pertinent medical history, review of any previous imaging, review of all previous records, and examination and decision making. Time was 60 minutes spent in review of all these facets including face to face discussion with the patient regarding my findings and in discussion of a current and future treatment plan. I reviewed the patient's x-rays with her and her . We discussed her pes planus deformity and the arthritis in both feet. We discussed she does not have pain on examination which indicate more arthrits when performing weight bearing activities. I believe majority of pain is coming from the arthritis in her feet. We discussed arthritis in the feet without proper support can cause pain. I explained there is no cure for arthritis, only symptomatic management. We reviewed some symptomatic treatment for arthritis including: NSAIDs, Heat, exercises, steroid injections, orthotics and shoe gear modifications.I recommended topical anti-inflammatory medication for the feet. RX diclofenac gel to apply to the feet BID PRN pain. We discussed heat is better than ice for arthritis. I also recommended exercises to keep her joints mobilized. I discussed with the patient aquatic therapy would also be beneficial. Handout dispensed with recommended exercises.We discussed she would benefit from extra depth orthopedic shoes and custom orthotics. RX given to the patient in the office today with a list of DME suppliers to get the prescription filled. I recommended she contact the office once she receives the shoes and the inserts, and we will schedule her a follow-up 4 weeks after to check the improvement. She is in agreement with this plan. 08/06/2024 Pain in left foot (ICD-10 - M79.672) 08/06/2024 Primary osteoarthritis, right ankle and foot (ICD-10 - M19.071) 08/06/2024 Primary osteoarthritis, left ankle and foot (ICD-10 - M19.072) 08/06/2024 Plantar fibromatosis (ICD-10 - M72.2) A plantar fibroma is a benign (non-cancerous) growth in the plantar fascia, a thick band of connective tissue on the bottom of the foot. This condition is also known as plantar fibromatosis when multiple growths are present. These nodules are typically firm and embedded within the plantar fascia, and they usually develop in the arch of the foot. Treatment depends on the severity of symptoms and may include: conservative methods: Orthotic devices or cushioned insoles to reduce pressure on the fibroma, Stretching exercises to improve flexibility in the foot, Physical therapy to alleviate pain, Nonsteroidal anti-inflammatory drugs (NSAIDs) for pain management, Corticosteroid injections to reduce inflammation and shrink the fibroma temporarily, Surgical Options: If conservative methods fail and pain significantly affects quality of life, surgical removal of the fibroma may be recommended. Surgery carries risks, including recurrence of the fibroma and potential complications like nerve damage or arch instability. 08/06/2024 Flat foot [pes planus] (acquired), right foot (ICD-10 - M21.41) 08/06/2024 Flat foot [pes planus] (acquired), left foot (ICD-10 - M21.42) Plan Of Treatment Pending Test Test Name Order Date X ray : Foot, left 3v 08/06/2024 X ray : Foot, right 3v 08/06/2024 Insurance Providers Payer Name Payer Address Payer Phone Subscriber Number Group Number Insured Name Patient Relationship to Insured Coverage Start Date Coverage End Date [facility] [address] [place] [id number] [phone] [id number] Ailyn Chisholm Self - patient is the insured Medical (General) History Medical History History ICD Code Dupuytren's contracture of right hand thyroid nodule multinodular goiter neck pain overweight iron deficiency anemia chronic lower back pain + COVID 2020 not COVID vaccinated Surgical History Surgery Date(Month/Year) colonoscopy right knee surgery 1994 right knee replacement 04/2024 uterine polyps removed Hospitalization History Reason Date(Month/Year) stomach virus as a child right knee replacement 04/2024
--- OUTSIDE RECORDS SUMMARY | 2024-12-27 10:13 | XMS_ITS ---
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) Active confirmed Vital Signs Temperature 97.5 degrees Fahrenheit 08/06/20 24 Heart Rate 90 /min 08/06/2024 Respiratory Rate 16 /min 08/06/2024 Height 5ft 7in in 08/06/2024 Weight 228.8 lbs 08/06/2024 BMI 35.83 kg/m2 08/06/2024 Encounters Encounter Location Date Provider Diagnosis [facility] [address] [address] 08/06/2024 JACQUELINE YOUNG Pain in right foot M79.671 ; Pain in left foot M79.672 ; Primary osteoarthritis, right ankle and foot M19.071 ; Primary osteoarthritis, left ankle and foot M19.072 ; Plantar fibromatosis M72.2 ; Flat foot [pes planus] (acquired), right foot M21.41 and Flat foot [pes planus] (acquired), left foot M21.42 Assessments Encounter Date Diagnosis (ICD Code) Assessment [...] foot (ICD-10 - M21.42) Plan Of Treatment Medication Medication Name Sig Start Date Stop Date Notes Diclofenac Sodium 1 % 1 gm to each foot Externally twice daily as needed for 30 days 08/06/2024 Treatment Notes Assessment Notes Pain in right foot This is an outpatient visit for evaluation [...] She is in agreement with this plan. Plantar fibromatosis A plantar fibroma is a benign (non-cancerous) [...] complications like nerve damage or arch instability. Pending Test Test Name Order Date X ray : Foot, left 3v 08/06/2024 X ray : Foot, right 3v 08/06/2024 Next Appt Details Follow Up: 4 weeks after rec eiving orthotics and shoes, Reason: Progress Notes * Ailyn WINTERDOB:11/1964 (59 yo F)Acc No.[id number]:08/06/2024 Consult note Patient:?Svetlana WINTER Provider:?Jacqueline Young DPM :1965???Age:59 Y???Sex:Female D ate:08/06/2024 Phone: Address:[address] [place] [id number] Pcp:Kayla Rosario Subjective: * Chief Complaints: * ???B/L feet pain * HPI: ???Constitutional:? This 59 y/o female presents to my office with a complaint of chronic bilateral foot pain. She states her feet have been painful for many years. She states her right foot is typically more painful than her left. She states when she was young, her feet turned in, and she had to wear special braces. She was seeing Dr. Villafuerte for her foot issues, and she would make and modify orthotics for the patient. She states this would help her joint pains. She also has lumps on the bottoms and sides of her feet. She does have dupuytren's contracture of her hand. She states these can be sore when walking and depending on her activity. She saw another tea blender over the summer for these issues, and they recommended injections or surgery, which she would like to avoid. She is currently in physical therapy following a recent right knee replacement. She states the tips of her toes are sore at times. She has increased swelling in her right foot. She has no other foot complaints this visit. Allergies and medical history reviewed. * ROS:?GENERAL: Pt denies nausea, fever, vomiting, chills, or shortness of breath. Pt in NAD. ALLERGY: patient denies any new allergy HEME/ONC: patient denies any bleeding or clotting disorders CARDIOLOGY: pt denies chest pain, palpitations LUNGS: pt denies shortness of breath ABDOMEN: patient denies any bloating, abdominal pain, or swelling MUSCULOSKELETAL: See HPI, patient has joint pain, back pain, s/p right knee replacement in April 2024, dupuytren's contracture of her hand SKIN: see HPI, otherwise no lesions, rash or itching NEURO: No persistent headache, weakness or numbness PSYCH: patient denies any current anxiety or depression The remainder of the review of systems is noncontributory. * Medical History:? * Surgical History:?colonoscop y right knee surgery 1994right knee replacement 04/2024uterine polyps removed * Hospitalization/Major Diagno stic Procedure:?right knee replacement 04/2024stomach virus as a child * Family History:?Father: dece ased, lung cancer.?Mother: , A-fib, arthritis, stroke.?Paternal Grand Father: heart attack.?Maternal Grand Father: heart attack.?Maternal Grand Mother: , stroke.?Siblings: brother- colon cancerbrother- hypertension.? * Social History:?Tobacco: no Alcohol: yes, occasional. * Medications:?TakingVitamin K 2 100 MCG Capsule as directed Orally Vitamin D3 50 MCG (2000 UT) Capsule 1 capsule Orally Once a day Taking Vitamin K2 100 MCG Capsule as directed Orally Taking Vitamin D3 50 MCG (2000 UT) Capsule 1 capsule Orally Once a day Not-TakingMagnesium Glycinate , Notes to Pharmacist: 133MGBoswellia , Notes to Pharmacist: 500MG BIDMedication List reviewed and reconciled with the patientNot-Taking Magnesium Glycinate , Notes to Pharmacist: 133MGNot-Taking Boswellia , Notes to Pharmacist: 500MG BIDMedication List reviewed and reconciled with the patient * Allergies:?N.K.D.A.no[Allerg ies Verified] Objective: * Vitals:?Wt:228.8lbs, Ht: 5ft 7in, BMI:35.83Index, HR:90/min, Temp:97.5F, RR:16/min, Ht-cm: 170.18, Wt-k.78 kg. * Examination: ???General Examination: ???GENERAL: Patient appears well nourished, with NAD. ?VASCULAR: Dorsalis pedis pulses are 2/4 bilaterally and Posterior tibial pulses are 2/4 bilaterally. Capillary filling time within normal limits the digits. Each foot temperature is within normal limits. ?NEUROLOGICAL: Sharp/dull sensation intact bilaterally, position sense intact bilaterally to the tibial tuberosity. ?ORTHOPEDIC: Good muscle strength 4+/5 of all flexors and extensors. Dorsi flexion of ankle , 0 degrees, plantar flexion WNL. No muscle atrophy. Pes planus bilaterally, right worse than left. No pain on palpation or ROM of the right/left foot. ?DERMATOLOGICAL: Soft tissue mass, hard, non-mobile plantar-medial aspect submetatarsal 1 right foot size 2.0cm x 2.5cm in size, Soft tissue mass, hard, non-mobile plantar proximal aspect submetatarsal 1 left foot size 3.0cm x 3.5cm in size. Normal skin temperature, normal skin turgor. ?BIOMECHANICS: STJ ROM WNL, MTJ ROM limited, 1st MPJ ROM limited. On weight-bearing, bilateral pes planus, RCSP 4 degrees valgus right, hallux limitus bilaterally ?SHOES: sneakers with OTC inserts. Therapeutic Interventions: Assessment: * Assessment: 1.?Pain in right foot - M79. 671 (Primary)?2.?Pain in left foot - M79.672?3.?Primary osteoarthritis, right ankle and foot - M19.071?4.?Primary osteoarthritis, left ankle and foot - M19.072?5.?Plantar fibromatosis - M72.2?6.?Flat foot [pes planus] (acquired), right foot - M21.41?7.?Flat foot [pes planus] (acquired), left foot - M21.42? Plan: * Treatment: Notes: This is an outpatient visit for evaluation and management of a new patient, which required appropriate review of pertinent medical history, review of any previous imaging, review of all previous records, and examination and decision making. Time was 60 minutes spent in review of all these facets including face to face discussion with the patient regarding my findings and in discussion of acurrent and future treatment plan. I reviewed the patient's x-rays with her and her . We discussed her pes planus deformity andthe arthritis in both feet. We discussed she [...] exercises to keep her joints mobilized. I discus sed with the patient aquatic therapy would also be beneficial. Handout dispensed with recommended exercises.We discussed she would benefit from extra depth orthopedic shoes and custom orthotics. RX given to the patient in the office today with a list of DME suppliers to get the prescription filled.I recommended she contact the office once she receives the shoes and the inserts, and we will schedule her a follow-up 4 weeks after to check the improvement. She is in agreement with this plan.??2.?Pain in left foot?Imaging: X ray : Foot, left 3v* RIGHT FOOT WEIGHT BEARING X- RAYS 3 VIEWS obtained during today's visit. There is diffuse radiolucency of the skeletal structure consistent with osteopenia. There is narrowing of the metatarsophalangeal joints 1,2 with flattening of the metatarsal heads consistent with degenerative changes. Tailor's bunion noted in the 5th metatarsal. There is talar uncovering of approximately 50% consistent with a moderate to severe pes planus deformity. On the lateral view there is complete loss of the arch with degenerative changes throughout the midtarsal joints. Small plantar calcaneal heel spur noted. Moderate to severe pes planus with arthritis of the right foot. 3.?Primary osteoarthritis, right ankle and foot?Imaging: X ray : Foot, right 3v* RIGHT FOOT WEIGHT BEARING X- RAYS 3 VIEWS obtained during today's visit. There is diffuse radiolucency of the skeletal structure consistent with osteopenia. There is narrowing of the metatarsophalangeal joints 1,2 with flattening of the metatarsal heads consistent with degenerative changes. Tailor's bunion noted in the 5th metatarsal. There is talar uncovering of approximately 50% consistent with a moderate to severe pes planus deformity. On the lateral view there is complete loss of the arch with degenerative changes throughout the midtarsal joints. Small plantar calcaneal heel spur noted. Moderate to severe pes planus with arthritis of the right foot. 4.?Primary osteoarthritis, left ankle and foot?Imaging: X ray : Foot, left 3v* RIGHT FOOT WEIGHT BEARING X- RAYS 3 VIEWS obtained during today's visit. There is diffuse radiolucency of the skeletal structure consistent with osteopenia. There is narrowing of the metatarsophalangeal joints 1,2 with flattening of the metatarsal heads consistent with degenerative changes. Tailor's bunion noted in the 5th metatarsal. There is talar uncovering of approximately 50% consistent with a moderate to severe pes planus deformity. On the lateral view there is complete loss of the arch with degenerative changes throughout the midtarsal joints. Small plantar calcaneal heel spur noted. Moderate to severe pes planus with arthritis of the right foot. 5.?Plantar fibromatosis? Notes:A plantar fibroma is a benign (non-cancerous) growth [...] potential complications like nerve damage or arch instability.??6.?Flat foot [pes planus] (acquired), right foot?Imaging: X ray : Foot, right 3v* RIGHT FOOT WEIGHT BEARING X- RAYS 3 VIEWS obtained during today's visit. There is diffuse radiolucency of the skeletal structure consistent with osteopenia. There is narrowing of the metatarsophalangeal joints 1,2 with flattening of the metatarsal heads consistent with degenerative changes. Tailor's bunion noted in the 5th metatarsal. There is talar uncovering of approximately 50% consistent with a moderate to severe pes planus deformity. On the lateral view there is complete loss of the arch with degenerative changes throughout the midtarsal joints. Small plantar calcaneal heel spur noted. Moderate to severe pes planus with arthritis of the right foot. 7.?Flat foot [pes planus] (acquired), left foot?Imaging: X ray : Foot, left 3v* RIGHT FOOT WEIGHT BEARING X- RAYS 3 VIEWS obtained during today's visit. There is diffuse radiolucency of the skeletal structure consistent with osteopenia. There is narrowing of the metatarsophalangeal joints 1,2 with flattening of the metatarsal heads consistent with degenerative changes. Tailor's bunion noted in the 5th metatarsal. There is talar uncovering of approximately 50% consistent with a moderate to severe pes planus deformity. On the lateral view there is complete loss of the arch with degenerative changes throughout the midtarsal joints. Small plantar calcaneal heel spur noted. Moderate to severe pes planus with arthritis of the right foot. 8.?Others? Start Diclofenac Sodium Gel, 1 %, 1 gm to each foot, Externally, twice daily as needed, 30 days, 60, Refills 2.?? * Procedure Codes:?73130 X-RAY EXAM OF FOOT 3 Views, Units: 2.00 * Follow Up:?4 weeks after rec eiving orthotics and shoes * Billing Information: * Visit Code:? 83068 Office Visit, New Pt., Level 4. * Procedure Codes:? 18389 X-RAY EXAM OF FOOT 3 Views. Units: 2.00. * Sign off status: Completed true * Provider:?Jacqueline Young DPM Date:? 08/06/2024 Generated for Delmis parikh/Moe/Kristaitting on:?12/27/2024 10:13 AM EDT History and Physical Notes * HPI (History of Present Illness) Category Sub-Category Detail Notes Category Not es Constitutional This 59 y/o f haven presents to my office with a complaint of chronic bilateral foot pain. She states her feet have been painful for many years. She states her right foot is typically more painful than her left. She states when she was young, her feet turned in, and she had to wear special braces. She was seeing Dr. Villafuerte for her foot issues, and she would make and modify orthotics for the patient. She states this would help her joint pains. She also has lumps on the bottoms and sides of her feet. She does have dupuytren's contracture of her hand. She states these can be sore when walking and depending on her activity. She saw another tea blender over the summer for these issues, and they recommended injections or surgery, which she would like to avoid. She is currently in physical therapy following a recent right knee replacement. She states the tips of her toes are sore at times. She has increased swelling in her right foot. She has no other foot complaints this visit. Allergies and medical history reviewed. Examination Category Sub-Category Detail Notes Category Not es General Examination GENERAL: Patient appears well nourished, with NAD. VASCULAR: Dorsalis pedis pulses are 2/4 bilaterally and Posterior tibial pulses are 2/4 bilaterally. Capillary filling time within normal limits the digits. Each foot temperature is within normal limits. NEUROLOGICAL: Sharp/dull sensation intact bilaterally, position sense intact bilaterally to the tibial tuberosity. ORTHOPEDIC: Good muscle strength 4+/5 of all flexors and extensors. Dorsi flexion of ankle , 0 degrees, plantar flexion WNL. No muscle atrophy. Pes planus bilaterally, right worse than left. No pain on palpation or ROM of the right/left foot. DERMATOLOGICAL: Soft tissue mass, hard, non-mobile plantar-medial aspect submetatarsal 1 right foot size 2.0cm x 2.5cm in size, Soft tissue mass, hard, non-mobile plantar proximal aspect submetatarsal 1 left foot size 3.0cm x 3.5cm in size. Normal skin temperature, normal skin turgor. BIOMECHANICS: STJ ROM WNL, MTJ ROM limited, 1st MPJ ROM limited. On weight-bearing, bilateral pes planus, RCSP 4 degrees valgus right, hallux limitus bilaterally SHOES: sneakers with OTC inserts
--- OUTSIDE RECORDS SUMMARY | 2024-12-27 10:14 | XMS_ITS ---
Author Organization [facility] Address [address] [address] Care Team Providers Care Hardware Assembler Name Role Phone Kayla Rosario Primary Care Provider RASHI Claudio [phone] REASON FOR VISIT Carecredit payment Encounters Encounter Location Date Provider Diagnosis [facility] [address] [address] 08/06/2024 RASHI VICTOR Plan Of Treatment No Information Progress Notes * Ailyn JAYDOB:11/1964 (59 yo F)Acc No.[id number]:08/06/2024 Patient:?Svetlana JAY :1965???Age:59 Y???Sex:Female Phone: Address:[address] [place] [phone] * true * Date:? Generated for Anabellei jl/Moe/eTransmitting on:?12/27/2024 10:13 AM EDT
--- OUTSIDE RECORDS SUMMARY | 2024-12-27 10:14 | XMS_ITS ---
Author Organization [facility] Address [address] [address] Care Team Providers Care Race And Sports Book Writer Name Role Phone Kayla Rosario Primary Care Provider RASHI Claudio [phone] REASON FOR VISIT last pcp office note Encounters Encounter Location Date Provider Diagnosis [facility] [address] [address] 07/15/2024 RASHI VICTOR Plan Of Treatment No Information Progress Notes * Ailyn JAYDOB:11/1964 (59 yo F)Acc No.[id number]:07/15/2024 Patient:?Svetlana JAY :1965???Age:59 Y???Sex:Female Phone: Address:[address] [place] [phone] * true * Date:? Generated for Anabellei jl/Moe/eTransmitting on:?12/27/2024 10:13 AM EDT
[2024-12-27 11:17] LABS: MANUAL DIFF FLAG NO
[2024-12-27 11:23] LABS: Appearance Urine Clear; Color Urine Yellow; Glucose Urine UA Negative (Negative); Leukocyte Esterase Urine Negative (Negative); Nitrite Urine Negative (Negative); PH 7.5 (5.0-9.0); Specific Gravity - Urine <= 1.005 (1.005-1.025); Urine Blood Negative (Negative); Urine Ketones Negative (Negative); Urine Protein Negative (Neg-Trace)
[2024-12-27 11:26] LABS: Bacteria Urine None Seen (None Seen); Hyaline Casts Urine 0-2 /LPF (0-2); RBC Urine 0-2 /HPF (0-2); Squamous Epithelial Cell Urine 0-2 /HPF (0-2); WBC Urine 0-5 /HPF (0-5)
[2024-12-27 11:26] LABS: Basophils Percent Auto 0.9 % (0-2); Eosinophils Percent Auto 0.9 % (0-4); Hematocrit 39.2 % (37.0-47.0); Imm Gran Abs Auto 0.01 X10*3/uL (0.00-0.03); Imm Gran Pct Auto 0.2 % (0.0-0.4); Lymphocytes Absolute Auto 1.7 X10*3/uL (1.2-4.9); Lymphocytes Percent Auto 36.6 % (20-40); Mean Corpuscular HGB Conc 33.2 g/dl (31.0-35.0); Mean Corpuscular Hemoglobin 30.7 pg (27.0-33.0); Mean Corpuscular Volume 92.5 fL (80.0-98.0); Mean Platelet Volume 9.9 fL (9.4-12.3); Monocytes Absolute Auto 0.4 X10*3/uL (0.1-1.2); Monocytes Percent Auto 8.4 % (2-11); Neutrophils Absolute Auto 2.4 x10*3/uL (2.0-8.3); Platelet Count 284 X10*3/uL (160-400); Red Blood Count 4.24 X10*6/uL (4.20-5.50); Red Cell Distribution Width 13.5 % (11.0-16.0); White Blood Count 4.5 X10*3/uL (4.8-10.8)
[2024-12-27 12:31] LABS: Alanine Aminotransferase 22 U/L (0-31); Albumin Level 4.3 g/dL (3.5-5.0); Alkaline Phosphatase 60 U/L (39-117); Anion Gap 10 (12-20); Aspartate Amino Transferase 24 U/L (5-31); Bilirubin Total 0.4 mg/dL (0.0-1.0); Blood Urea Nitrogen 9 mg/dL (9-16); Calcium 9.3 mg/dL (8.4-10.2); Carbon Dioxide 28 mmol/L (22-29); Chloride 103 mmol/L (96-108); Cholesterol 196 mg/dL (<200); Estimated Glomerular Filt Rate > 60; Glucose Fasting 91 mg/dL (60-99); HDL Cholesterol 74 mg/dL (>40); LDL Cholesterol Calculated 113 mg/dL (<100); Potassium 3.6 mmol/L (3.3-5.1); Sodium 137 mmol/L (135-145); Total Protein 7.3 g/dL (6.5-8.0); Triglycerides 49 mg/dL (<150)
[2024-12-27 12:48] LABS: TSH reflex Free T4 1.21 uIU/mL (0.32-4.0); Vitamin D 25-OH Total 56.4 ng/mL (>30)
== END 2024-12-27 10:12 | disposition home or self-care (01) ==
LOC: HO.HMGCLDS 10:11
PROVIDERS: PCP Internal Medicine; Visit Provider Internal Medicine
DX: Z00.00 Encounter for general adult medical examination without abnormal findings (principal)
CPT/HCPCS: 36415; 80053; 80061; 81001; 82306; 84443; 85025

== ENCOUNTER 2025-01-02 11:28 | Outpatient (AMB) | payer OTHER, SELFPAY ==
[2025-01-02 11:35] VITALS: BP 130/80; PULSE 86; RESP 16; TEMP 36.7; O2SAT 99; BMI 33.7
--- NOTE | 2025-01-02 11:35 | MHC.PC.OV ---
Vital Signs 01/02/25 11:35 Height 5 ft 7 in Weight 215 lb BMI 33.7 BP 130/80 Blood Pressure Location Rt brachial Position Sitting Respiration 16 Pulse 86 Pulse Source Pulse Oximeter Temp 98.0 F Temp Source Oral Pulse Oximetry (%) 99 Oxygen Delivery Method Room Air Intake Visit Reasons: PE Intake Note: Pt is here today for PE. Allergies aspirin Adverse Reaction (Intermediate, Verified 01/02/25 11:36) Stomach Upset Medication List - Last Reconciled 01/02/25 by Kayla Rosario MD cholecalciferol (vitamin D3) 2,000 units PO DAILY magnesium glycinate 3,000 mg PO vitamin K2 100 mcg PO DAILY Tobacco use date assessed: 01/02/25 Dental Screening Dental Screen Date: 01/02/25 Did you have a dental visit in the last 12 months?: Yes Did you have a dental problem in the last 6 months where you did not have access to dental care?: No Was dental information given to patient?: Patient has dentist HPI PE HPI Details Pt presents for PE. She has been more physically active since her knee arthroplasty surgery in April and lost 10 lb. [facility] Medical History (Updated 01/02/25 @ 12:42 by Kayla Rosario MD) Osteoarthritis of right knee Hx of screening mammography Arthritis RBBB (right bundle branch block) Sleep apnea Dupuytren's contracture of right hand Multinodular goiter Overweight Iron deficiency anemia Surgical History (Updated 01/02/25 @ 12:39 by Kayla Rosario MD) Hx of total knee replacement H/O colonoscopy History of right knee surgery Family History Father Lung cancer Mother A-fib Other Mental health disorder Substance use disorder Social History Housing: Apartment Are you a primary director medicare sales to a significant other at home: No Do you presently have visiting nurse or other home services: No Alcohol intake: current Alcohol intake frequency: a few times a month Patient Tobacco Use Status: Never used Tobacco e-Cigarette/Vaping Use: Never Used service: No Current occupational status: employed Cognitive needs: No Hearing needs: No Vision needs: Yes Questionnaire PHQ-9 Over the last 2 weeks, how often have you been bothered by any of the following problems? 1. Little interest or pleasure in doing things: not at all 2. Feeling down, depressed, or hopeless: not at all 3. Trouble falling or staying asleep, or sleeping too much: several days 4. Feeling tired or having little energy: several days 5. Poor appetite or overeating: not at all 6. Feeling bad about yourself - or that you are a failure or have let yourself or your family down: not at all 7. Trouble concentrating on things, such as reading the newspaper or watching television: not at all 8. Moving or speaking so slowly that other people could have noticed. Or the opposite - being so fidgety or restless that you have been moving around a lot more than usual: not at all 9. Thoughts that you would be better off or of hurting yourself in some way: not at all Total score: 2 Depression Screening Interpretation: Negative Depression Screening Done: Yes 86155 - PHQ-9 Billing: Yes Source: Developed by Drs. Patricio Penaloza, Zulma Moya, Harris Cody and colleagues, with an educational mychal from [employer]. Thrive Questionnaire Date Thrive assessed: 01/02/25 I am a: Patient What is your living situation today?: I have a steady place to live Within the past 12 months, did the food you bought not last and you didn't have the money to get more?: Never true Within the past 12 months, did you worry whether your food would run out before you got money to buy more?: Never true Do you have trouble paying for medicines?: No Do you have trouble getting transportation to medical appointments?: No Do you have trouble paying your heating and electricity bill?: No Do you have trouble taking care of your child, family member or friend?: No Do you have trouble with day-to-day activities such as bathing, preparing meals, shopping, managing finances, etc.?: No Are you currently unemployed and looking for a job?: No Are you interested in more education?: No Please select the resources that you would like help with: None Currently or been in a relationship where the following occur: No concerns reported THRIVE Score: 0 AUDIT C Alcohol Use Questionnaire (AUDIT-C) 1. How often do you have a drink containing alcohol?: 2-3 times a week 2. How many drinks containing alcohol do you have on a typical day when you are drinking?: 1 or 2 3. How often do you have six or more drinks on one occasion?: Never Total Score: 3 ISABEL-7 AMB Questionnaire ISABEL-7 Date ISABEL - 7 assessed: 01/02/25 Feeling nervous, anxious, or on edge: 1 = Several days Not being able to stop or control worryin = Not at all Worrying too much about different things: 1 = Several days Trouble relaxin = Not at all Being so restless that it is hard to sit still: 0 = Not at all Becoming easily annoyed or irritable: 0 = Not at all Feeling afraid as if something awful might happen: 0 = Not at all Total ISABEL-7 score (0-4 normal; 5-9 mild; 10-14 moderate; 15-21 severe): 2 Source: Developed by Drs. Patricio Penaloza, Zulma Moya, Harris Cody and colleagues, with an educational mychal from [employer]. ISABEL-7 Assessment Billing ISABEL-7 Assessment Tool: ISABEL-7 Assessment 60831 Review of Systems Const All systems reviewed & are unremarkable except as noted in HPI and below Eyes Reports no additional complaints ENT Reports no additional complaints Card Reports no additional complaints Resp Reports no additional complaints GI Reports no additional complaints Reports no additional complaints Physical exam (Primary Care) Vital Signs: Last Vital Signs Temp 98.0 F 01/02/25 11:35 Pulse 86 01/02/25 11:35 Resp 16 01/02/25 11:35 BP 130/80 01/02/25 11:35 Pulse Ox 99 01/02/25 11:35 Oxygen Delivery Method Room Air 01/02/25 11:35 BMI result Body Mass Index 33.7 Tobacco/Smoking Status: Tobacco use Status Tobacco use date assessed 01/02/25 01/02/25 11:47 Patient Tobacco Use Status Never used Tobacco 01/02/25 11:47 e-Cigarette/Vaping Use Never Used 01/02/25 11:47 PHQ-9: PHQ-9 Score PHQ-9: Total score 2 01/02/25 11:47 Depression Screening Interpretation: Negative Thrive Assessment: Date of Thrive Assessment Date Thrive assessed 01/02/25 01/02/25 11:47 Currently or been in a relationship where the following occur: No concerns reported Const General: no acute distress HENMT Ears: TM's normal bilaterally Face and sinus: Yes normal facial exam Mouth: Normal oral and palatal mucosa present Eyes General: appearance normal, both eyes and all related structures Neck Neck: Yes no lymphadenopathy Resp Effort & Inspection: normal respiratory effort Auscultation: clear to auscultation bilaterally Cardio Rhythm: regular rhythm Heart sounds: S1 normal heart sound present and S2 normal heart sound present GI Inspection: Yes normal to inspection Palpation (GI): Soft to palpation Percussion: Yes normal to percussion Auscultation: normal bowel sounds Coding Level of Care Code Est Pt Prev Care 40-64y(87624) Diagnoses Multinodular goiter E04.2 Osteoarthritis of right knee M17.11 Annual physical exam Z00.00 Overweight E66.3 Additional Codes ISABEL-7 Assessment Billing - ISABEL-7 Assessment Tool: ISABEL-7 Assessment 47983 ([id number]) PHQ-9 - 22548 - PHQ-9 Billing: Yes ([id number]) Assessment & Plan Assessment & Plan (1) Multinodular goiter: Comment: f/u endo Dr. Wilson annual US Code(s): E04.2 - Nontoxic multinodular goiter Category: Medical Plan: Follow-up with completions manager annually (2) Osteoarthritis of right knee: Comment: severe MR 12/25, s/o TKA 04/2024 Code(s): M17.11 - Unilateral primary osteoarthritis, right knee Category: Medical Plan: Recovered well (3) Annual physical exam: Code(s): Z00.00 - Encounter for general adult medical examination without abnormal findings Category: Medical Plan: Well-balanced diet regular physical activity discussed with the patient she is up-to-date with the mammogram Pap smear and colonoscopy (4) Overweight: Code(s): E66.3 - Overweight Category: Medical Plan: Decreasing caloric intake increasing physical activity discussed with the patient Orders: Orders Comprehensive [place]. Panel Fast 1 Year Z00.00 - Encounter for general adult medical examination without abnormal findings Vitamin D 25-OH Total 1 Year Z00.00 - Encounter for general adult medical examination without abnormal findings Complete Blood Count Auto Diff 1 Year Z00.00 - Encounter for general adult medical examination without abnormal findings Lipid Panel 1 Year Z00.00 - Encounter for general adult medical examination without abnormal findings TSH reflex Free T4 1 Year Z00.00 - Encounter for general adult medical examination without abnormal findings Referrals Endocrinology Referral E04.2 - Nontoxic multinodular goiter
--- OUTSIDE RECORDS SUMMARY | 2025-01-02 12:25 | XMS_ITS | Patient Health Record ---
[facility] Organization [facility] Address [address] [facility] [address] [place] [address] Care Team Providers Care Fishing Boat Captain Name Role Phone Kayla Rosario MD Primary Care Provider Meme Molina Unavailable [phone] Allergies No Known Allergies Reason For Referral No Information Medications Medication SIG (Take, Route, Frequency, Duration) Notes Start Date End Date Status Norethindrone Acetate 5 MG TAKE 1 TABLET BY MOUTH DAILY FOR 10 DAYS EVERY 3 MONTHS IF NO MENSES for 90 Active Vitamin C 1000 MG 1 tablet Orally Once a day for 30 day(s) Active Vitamin D3 50 MCG (1999) 1 capsule Or ally Once a day for 30 day(s) Active Social History Tobacco Use: Social History Observation Description Date Details (start date - stop date) Never Smoker NA - NA Tobacco Use/Smoking Question Answer Notes Are you a nonsmoker Alcohol Screen (Audit-C) Question Answer Notes Did you have a drink contain ing alcohol in the past year? Yes How often did you have a dri nk containing alcohol in the past year? 2 to 3 times a week (3 points) How many drinks did you have on a typical day when you were drinking in the past year? 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 Major Problem Depressive disorder (26000741) Depressive disorder, not elsewhere classified (311) Active confirmed Major Problem Gynecological examination normal (936808673060539) Routine gynecological examination (V72.31) Active confirmed Plan Of Treatment Pending Test Test Name Order Date Test, Urine 11/21/2019 MAMMOGRAM, SCREENING 04/27/2015 MAMMOGRAM, SCREENING 03/03/2015 Urinalysis 11/15/2018 Urinalysis 11/21/2019 Breast Biopsy, Stereo 05/29/2016 Ultrasound : Biopsy Breast Right 016 Ultrasound : Sono Hystergram 04/01/2018 ENDOMETRIAL BX 04/01/2018 COMPLETE BLOOD COUNT 10/19/2017 THIN PREP,HPV,FATIMAH IF HPV+ (>29YR)(DIAG) 11/15/2018 MM Digital Mammo Screening 11/24/2020 MM Digital Mammo Screening 11/24/2021 MM Digital Mammo Screening 04/21/2016 Insurance Providers Payer Name Payer Address Payer Phone Subscriber Number Group Number Insured Name Patient Relationship to Insured Coverage Start Date Coverage End Date [facility] [address] [place] [address] [phone] [id number] ABRAMOWIC Z, [place] Self - patient is the insured Medical (General) History Medical History History ICD Code 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
--- OUTSIDE RECORDS SUMMARY | 2025-01-02 12:25 | XMS_ITS | Patient Health Record ---
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) Active confirmed Vital Signs Heart Rate 90 /min 08/06/2024 Temperature 97.5 degrees Fahrenheit 08/06/2024 Respiratory Rate 16 /min 08/06/2024 Height 5ft 7in in 08/06/2024 Weight 228.8 lbs 08/06/2024 BMI 35.83 kg/m2 08/06/2024 Encounters Encounter Location Date Provider Diagnosis [facility] [address] [address] 08/06/2024 RASHI VICTOR Pain in right foot M79.671 ; Pain in left foot M79.672 ; Primary osteoarthritis, right ankle and foot M19.071 ; Primary osteoarthritis, left ankle and foot M19.072 ; Plantar fibromatosis M72.2 ; Flat foot [pes planus] (acquired), right foot M21.41 and Flat foot [pes planus] (acquired), left foot M21.42 [facility] [address] [address] 07/15/2024 RASHI VICTOR [facility] [address] [address] 08/06/2024 RASHI VICTOR Assessments Encounter Date Diagnosis (ICD Code) [...] Insured Coverage Start Date Coverage End Date [facility] [address] [place] [id number] Ailyn Chisholm Self - patient is the [...]
--- OUTSIDE RECORDS SUMMARY | 2025-01-02 12:25 | XMS_ITS ---
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) Active confirmed Vital Signs Temperature 97.5 degrees Fahrenheit 08/06/20 24 Heart Rate 90 /min 08/06/2024 Respiratory Rate 16 /min 08/06/2024 Height 5ft 7in in 08/06/2024 Weight 228.8 lbs 08/06/2024 BMI 35.83 kg/m2 08/06/2024 Encounters Encounter Location Date Provider Diagnosis [facility] [address] [address] 08/06/2024 JACQUELINE YOUNG Pain in right foot [...] Notes * Ailyn WINTERDOB:11/1964 (59 yo F)Acc No.[id number]:08/06/2024 Consult note Patient:?Svetlana WINTER Provider:?Jacqueline Young DPM :1965???Age:59 Y???Sex:Female D ate:08/06/2024 Phone: Address:[address] [place] [phone] Pcp:Kayla Rosario Subjective: * Chief Complaints: * [...] depending on her activity. She saw another data operations manager over the summer for these issues, and [...] 30 days, 60, Refills 2.?? * Procedure Codes:?29054 X-RAY EXAM OF FOOT 3 Views, Units: 2.00 * Follow Up:?4 weeks after rec eiving orthotics and shoes * Billing Information: * Visit Code:? 50790 Office Visit, New Pt., Level 4. * Procedure Codes:? 73226 X-RAY EXAM OF FOOT 3 Views. Units: 2.00. * Sign off status: Completed true * Provider:?Jacqueline Young DPM Date:? 08/06/2024 Generated for Delmis parikh/Moe/Jada on:?01/02/2025 12:25 PM EDT History and Physical Notes * HPI [...] depending on her activity. She saw another data operations manager over the summer for these issues, and [...]
--- OUTSIDE RECORDS SUMMARY | 2025-01-02 12:26 | XMS_ITS ---
Author Organization [facility] Address [address] [address] Care Team Providers Care Revenue Accountant Name Role Phone Kayla Rosario Primary Care Provider RASHI Claudio [phone] REASON FOR VISIT last pcp office note Encounters Encounter Location Date Provider Diagnosis [facility] [address] [address] 07/15/2024 RASHI VICTOR Plan Of Treatment No Information Progress Notes * Ailyn JAYDOB:11/1964 (59 yo F)Acc No.[id number]:07/15/2024 Patient:?Svetlana JAY :1965???Age:59 Y???Sex:Female Phone: Address:[address] [place] [phone] * true * Date:? Generated for Anabellei jl/Moe/eTransmitting on:?01/02/2025 12:25 PM EDT
--- OUTSIDE RECORDS SUMMARY | 2025-01-02 12:26 | XMS_ITS ---
Author Organization [facility] Address [address] [address] Care Team Providers Care Logistics Coordinator Name Role Phone Kayla Rosario Primary Care Provider RASHI Claudio [phone] REASON FOR VISIT [employer] payment Encounters Encounter Location Date Provider Diagnosis [facility] [address] [address] 08/06/2024 RASHI VICTOR Plan Of Treatment No Information Progress Notes * Ailyn JAYDOB:11/1964 (59 yo F)Acc No.[id number]:08/06/2024 Patient:?Svetlana JAY :1965???Age:59 Y???Sex:Female Phone: Address:[address] [place] [phone] * true * Date:? Generated for Anabellei jl/Moe/eTransmitting on:?01/02/2025 12:25 PM EDT
== END 2025-01-02 12:43 | disposition home or self-care (01) ==
LOC: HO.HMCC 11:29
PROVIDERS: PCP Internal Medicine; Visit Provider Internal Medicine
DX: E04.2 Nontoxic multinodular goiter (principal); M17.11 Unilateral primary osteoarthritis, right knee; Z00.00 Encounter for general adult medical examination without abnormal findings; E66.3 Overweight

== ENCOUNTER → 2025-01-02 11:28 | Outpatient (BNVA) | payer OTHER, SELFPAY | PROVIDERS: PCP Internal Medicine; Visit Provider Internal Medicine | DX: Z00.00 Encounter for general adult medical examination without abnormal findings (principal); E04.2 Nontoxic multinodular goiter; M17.11 Unilateral primary osteoarthritis, right knee; E66.3 Overweight; Z68.33 Body mass index [BMI] 33.0-33.9, adult | CPT/HCPCS: 96127 ==